=== PATIENT | male | born 1940 | race Caucasian/White ===

== ENCOUNTER → 2016-11-15 | Outpatient (CLI) | payer MEDICARE ==
[2016-11-15 08:41] LABS: Blood Urea Nitrogen 20 mg/dL (9-20); Non-African American GFR(MDRD) >60 (>60 ml/min/1.73 sqM)
--- NOTE | 2016-11-15 09:25 | CT ---
EXAMINATION TYPE: CT abdomen pelvis wo/w con DATE OF EXAM: 11/15/2016 REFERENCE: Previous study dated 03/04/2016 HISTORY: R10.9 unspecified abdominal pain HISTORY: Patient complains of epigastric pain, weight loss, fever, and weakness. REFERENCE: NONE CT DLP: 2507 mGy Automated exposure control for dose reduction was used. TECHNIQUE: Helical acquisition through the abdomen and pelvis was obtained following the oral ingesti on of with Oral Contrast and following intravenous administration of 100 mL of Omnipaque 300. The liberty a was reformatted in axial, coronal and sagittal projections. FINDINGS: Visualized portions of the lungs are clear. There is no pleural or pericardial fluid. The heart is not enlarged. There is coronary and other vascular calcifications. Within the abdomen, there is evidence of old granulomatous disease involving the spleen. The gallblad otis is been removed. The liver is unremarkable. There is mild thickening of the first part of the duodenum. The stomach is unremarkable. Both adrenal glands are normal. There is marked atrophy of the right kidney. The left kidney is unremarkable. The pancreas is unremarkable. There is no significant retroperitoneal, iliac or inguinal adenopathy. The prostate gland is enlarged. The bladder wall is somewhat thickened and this may the on the basis of chronic bladder outlet obstruction. There is mild thickening of the wall of the sigmoid colon. Its may be on the basis of smooth muscle h ypertrophy. There is no significant diverticular change and there is no radiographic evidence of dive rticulitis. The appendix is normal. Small bowel loops are normal. There is no free fluid and no free air. No bony destructive lesion is seen. There is facet arthropathy and hypertrophic spondylosis throughou t the spine. IMPRESSION: 1. MILD THICKENING OF THE DUODENUM. DIRECT VISUALIZATION COULD BE PERFORMED TO EXCLUDE DUODENITIS. 2. 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 3. MARKED ATROPHY OF THE RIGHT KIDNEY. 4. PROSTATIC ENLARGEMENT. 5. MILD THICKENING OF THE WALL OF SIGMOID COLON MAY BE ON THE BASIS OF MUSCLE HYPERTROPHY. 5. MODERATELY SEVERE DEGENERATIVE CHANGES WITHIN THE SPINE.
== END | disposition home or self-care (01) ==
LOC: RADCTMAIN 07:57
PROVIDERS: ATTEND Internal Medicine Gastroenterology
DX: N26.1 Atrophy of kidney (terminal) (principal); N40.0 Benign prostatic hyperplasia without lower urinary tract symptoms; K31.89 Other diseases of stomach and duodenum; K63.89 Other specified diseases of intestine
CPT/HCPCS: 82565; 84520; 74178; 36415; Q9967

== ENCOUNTER 2016-11-18 11:43 | Day surgery (SDC) | payer MEDICARE ==
[2016-11-16 14:34] VITALS: BMI 28.3
[~2016-11-18 11:43] MED LIST: LACTATED RINGERS 1,000 ML IV SCH
[2016-11-18 11:59] VITALS: TEMP 98.6
[2016-11-18] MEDS ORDERED: LIDOCAINE 1% 20 ML VIAL (10MG/ML) FOR IV START INTRADERMA ONE (12:07)
[2016-11-18] MEDS ORDERED: PROPOFOL 10 MG/ML 20 ML VIAL IV ONE (12:43)
--- NOTE | 2016-11-18 13:12 | P.PCN ---
Date of Procedure: 11/18/16 Preoperative Diagnosis: Postoperative Diagnosis: Procedure(s) Performed: PREOPERATIVE DIAGNOSIS: Screening for history of polyps. POSTOPERATIVE DIAGNOSIS: Sigmoid diverticulosis with no evidence of acute diverticulitis, strictures, polyps or cancer. Preparation: HalfLytely prep. Sedation: Was provided by anesthesia. BRIEF CLINICAL HISTORY: The patient is a 76-year-old male who is scheduled for this evaluation because of history of polyps. He has no bowel complaints of bleeding or anemia. He has been evaluated for epigastric pains and weight loss and has had couple EGDs last fall and winter in [place] and in [place]. His last colonoscopy was around 5 years ago. PROCEDURE: With the patient on her left lateral decubitus position and after informed consent and adequate sedation, the perianal area was inspected and did not show any fissures or fistulas. There were no masses felt on digital rectal examination. The Olympus CFQ 160L video colonoscope was then inserted in the rectum in the usual fashion and advanced to the cecum. There were several few orifices seen scattered in the sigmoid but there was no evidence of acute diverticulitis or strictures. No polyps or tumors were seen. I retroflexed the endoscope in the rectum then the endoscope was withdrawn. Low-grade internal hemorrhoids were noted but there was no bleeding The patient tolerated the procedure well. PLAN: The patient was reassured. Discussed dietary measures. I suggested repeating this exam in 5 years. He will follow-up with you as planned. Implants: Implants: Indications for Procedure: Operative Findings: Description of Procedure:
[2016-11-18 13:39] VITALS: BP 131/72; PULSE 49; RESP 16
== END 2016-11-18 14:07 | disposition home or self-care (01) ==
LOC: ORWHC2ENDO 11:43
DX: Z12.11 Encounter for screening for malignant neoplasm of colon (principal); Z86.010 Personal history of colon polyps; K57.30 Diverticulosis of large intestine without perforation or abscess without bleeding; I10 Essential (primary) hypertension; H40.9 Unspecified glaucoma; K64.8 Other hemorrhoids; R63.4 Abnormal weight loss; K21.9 Gastro-esophageal reflux disease without esophagitis; Z79.899 Other long term (current) drug therapy; Z87.891 Personal history of nicotine dependence
CPT/HCPCS: J2704; G0105; 45378

== ENCOUNTER 2016-11-20 11:55 | Emergency (ER) | payer MEDICARE ==
[2016-11-20] MEDS ORDERED: MAG HYDROX/AL HYDROX/SIMETH 30 ML, HYOSCYAMINE ELIXIR 10 ML, CIMETIDINE HCL 300 MG, LID... PO STA ×4 (12:24)
--- NOTE | 2016-11-20 12:28 | ED ---
Abdominal Pain HPI - General Chief Complaint: Abdominal Pain Stated Complaint: abdominal pain Time Seen by Provider: 11/20/16 12:19 Source: patient, family Mode of arrival: wheelchair Limitations: no limitations - History of Present Illness Initial Comments: This patient is a 76-year-old man who presents with complaint of abdominal pain. He states that this pain is been going on for approximately one year, however it is worse for the past 1-2 days after he had a colonoscopy performed ( Dr. Grvoe). The patient states that he had been "taking medicine to coat my stomach and I think with the bowel preparation it washed the coating off of my stomach." The patient states that the pain is constant, severe, and he states it feels like a toothache. He has not noted any worsening factors. The patient states that he usually tries to induce emesis to help but it didn't help this time. Denies change in bowel movements or urination. No nausea or vomiting, other than self-induced. MD Complaint: abdominal pain Onset/Timin -: year(s) Location: epigastric Radiation: none Migration to: no migration Severity: severe Quality: other (Like a toothache) Consistency: constant Improves With: nothing Worsens With: nothing Context: recent surgery/procedure Associated Symptoms: denies other symptoms - Related Data Home Medications Medication Instructions Recorded Confirmed Atenolol/Chlorthalidone 1 tab PO DAILY 12/12/13 11/20/16 [Atenolol-Chlorthal 50-25 Tb] Escitalopram [Lexapro] 10 mg PO DAILY 12/12/13 11/20/16 Dorzolamide-Timolol 2%/0.5% 1 drop BOTH EYES DAILY 11/16/16 11/20/16 [dorzolamide-Timolol 2%/0.5%] Latanoprost Ophth [Xalatan 0.005%] 1 drops BOTH EYES HS 11/16/16 11/20/16 [place]-3 Fatty Acids [[place]-3] 1,000 mg PO DAILY 11/16/16 11/20/16 Omeprazole 20 mg PO BID 11/16/16 11/20/16 Potassium Chloride ER [K-Dur 10] 10 meq PO BID 11/16/16 11/20/16 Calcium Carbonate/Vitamin D3 1 tab PO QID 11/20/16 11/20/16 [Caltrate 600 Plus D3 Tablet] Simethicone [Gas-X] 125 mg PO Q6H PRN 11/20/16 11/20/16 Turmeric Root Extract [Turmeric] 500 mg PO DAILY 11/20/16 11/20/16 Previous Rx's Medication Instructions Recorded Hydrocodone/Acetaminophen [Craig 1 each PO Q6HR PRN #20 tab 11/20/16 5-325] Allergies Allergy/AdvReac Type Severity Reaction Status Date / Time No Known Allergies Allergy Verified 11/20/16 13:24 Review of Systems ROS Statement: Those systems with pertinent positive or pertinent negative responses have been documented in the HPI. ROS Other: All systems not noted in ROS Statement are negative. Constitutional: Denies: fever, chills Respiratory: Denies: cough, dyspnea Cardiovascular: Denies: chest pain, edema, syncope Gastrointestinal: Reports: as per HPI, abdominal pain. Denies: nausea, vomiting , diarrhea, constipation, hematemesis, melena, hematochezia Genitourinary: Denies: dysuria, frequency, hematuria, testicular pain Musculoskeletal: Denies: back pain Skin: Denies: rash Neurological: Denies: headache, weakness, numbness Past Medical History Past Medical History: GERD/Reflux, Hypertension Additional Past Medical History / Comment(s): Atrophic (R) kidney History of Any Multi-Drug Resistant Organisms: None Reported Past Surgical History: Cholecystectomy Additional Past Surgical History / Comment(s): Neck surgery Past Psychological History: Anxiety Smoking Status: Never smoker Past Alcohol Use History: None Reported Past Drug Use History: None Reported General Exam Limitations: no limitations General appearance: alert, in no apparent distress Head exam: Present: atraumatic, normocephalic Eye exam: Present: normal appearance. Absent: scleral icterus, conjunctival injection ENT exam: Present: normal oropharynx Respiratory exam: Present: normal lung sounds bilaterally. Absent: respiratory distress, wheezes, rales, rhonchi, stridor, chest wall tenderness Cardiovascular Exam: Present: regular rate, normal rhythm, normal heart sounds. Absent: systolic murmur, diastolic murmur, rubs, gallop GI/Abdominal exam: Present: soft, normal bowel sounds. Absent: distended, tenderness, guarding, rebound, mass, pulsatile mass, hernia Extremities exam: Present: normal inspection, normal capillary refill. Absent: pedal edema, calf tenderness Back exam: Present: normal inspection. Absent: CVA tenderness (R), CVA tenderness (L) Neurological exam: Present: alert Skin exam: Present: warm, dry, intact, normal color. Absent: rash Course Vital Signs 11/20/16 11/20/16 11/20/16 12:05 13:02 13:18 Temperature 97.0 F L 98.7 F Pulse Rate 72 65 Respiratory 16 16 16 Rate Blood Pressure 129/89 152/75 O2 Sat by Pulse 100 98 Oximetry Medical Decision Making - Lab Data Result diagrams: 11/20/16 12:33 11/20/16 12:33 Lab Results 11/20/16 11/20/16 11/20/16 Range/Units 12:33 12:33 12:33 WBC 14.2 H (3.8-10.6) k/uL RBC 4.60 (4.30-5.90) m/uL Hgb 14.4 (13.0-17.5) gm/dL Hct 43.8 (39.0-53.0) % MCV 95.4 (80.0-100.0) fL MCH 31.4 (25.0-35.0) pg MCHC 33.0 (31.0-37.0) g/dL RDW 13.2 (11.5-15.5) % Plt Count 202 (150-450) k/uL Neutrophils % 87 % Lymphocytes % 5 % Monocytes % 5 % Eosinophils % 0 % Basophils % 0 % Neutrophils # 12.3 H (1.3-7.7) k/uL Lymphocytes # 0.8 L (1.0-4.8) k/uL Monocytes # 0.8 (0-1.0) k/uL Eosinophils # 0.1 (0-0.7) k/uL Basophils # 0.0 (0-0.2) k/uL Sodium 137 (137-145) mmol/L Potassium 3.1 L (3.5-5.1) mmol/L Chloride 95 L (98-107) mmol/L Carbon Dioxide 31 H (22-30) mmol/L Anion Gap 11 mmol/L BUN 11 (9-20) mg/dL Creatinine 1.01 (0.66-1.25) mg/dL Est GFR (MDRD) Af Amer >60 (>60 ml/min/1.73 sqM) Est GFR (MDRD) Non-Af >60 (>60 ml/min/1.73 sqM) Glucose 142 H (74-99) mg/dL Calcium 9.3 (8.4-10.2) mg/dL Total Bilirubin 3.2 H (0.2-1.3) mg/dL AST 51 (17-59) U/L ALT 112 H (21-72) U/L Alkaline Phosphatase 226 H (38-126) U/L Troponin I <0.012 (0.000-0.034) ng/mL Total Protein 7.0 (6.3-8.2) g/dL Albumin 3.7 (3.5-5.0) g/dL Amylase 56 (30-110) U/L Lipase 98 (23-300) U/L Urine Color Urine Appearance (Clear) Urine pH (5.0-8.0) Ur Specific [place] (1.001-1.035) Urine Protein (Negative) Urine Glucose (UA) (Negative) Urine Ketones (Negative) Urine Blood (Negative) Urine Nitrite (Negative) Urine Bilirubin (Negative) Urine Urobilinogen (<2.0) mg/dL Ur Leukocyte Esterase (Negative) Urine RBC (0-5) /hpf Urine WBC (0-5) /hpf Urine Bacteria (None) /hpf Hyaline Casts (0-2) /lpf Urine Mucus (None) /hpf 11/20/16 Range/Units 12:33 WBC (3.8-10.6) k/uL RBC (4.30-5.90) m/uL Hgb (13.0-17.5) gm/dL Hct (39.0-53.0) % MCV (80.0-100.0) fL MCH (25.0-35.0) pg MCHC (31.0-37.0) g/dL RDW (11.5-15.5) % Plt Count (150-450) k/uL Neutrophils % % Lymphocytes % % Monocytes % % Eosinophils % % Basophils % % Neutrophils # (1.3-7.7) k/uL Lymphocytes # (1.0-4.8) k/uL Monocytes # (0-1.0) k/uL Eosinophils # (0-0.7) k/uL Basophils # (0-0.2) k/uL Sodium (137-145) mmol/L Potassium (3.5-5.1) mmol/L Chloride (98-107) mmol/L Carbon Dioxide (22-30) mmol/L Anion Gap mmol/L BUN (9-20) mg/dL Creatinine (0.66-1.25) mg/dL Est GFR (MDRD) Af Amer (>60 ml/min/1.73 sqM) Est GFR (MDRD) Non-Af (>60 ml/min/1.73 sqM) Glucose (74-99) mg/dL Calcium (8.4-10.2) mg/dL Total Bilirubin (0.2-1.3) mg/dL AST (17-59) U/L ALT (21-72) U/L Alkaline Phosphatase (38-126) U/L Troponin I (0.000-0.034) ng/mL Total Protein (6.3-8.2) g/dL Albumin (3.5-5.0) g/dL Amylase (30-110) U/L Lipase (23-300) U/L Urine Color Yellow Urine Appearance Cloudy (Clear) Urine pH 6.0 (5.0-8.0) Ur Specific [place] 1.013 (1.001-1.035) Urine Protein 1+ H (Negative) Urine Glucose (UA) Negative (Negative) Urine Ketones Negative (Negative) Urine Blood Negative (Negative) Urine Nitrite Negative (Negative) Urine Bilirubin 1+ H (Negative) Urine Urobilinogen 2.0 (<2.0) mg/dL Ur Leukocyte Esterase Negative (Negative) Urine RBC 2 (0-5) /hpf Urine WBC 2 (0-5) /hpf Urine Bacteria Rare H (None) /hpf Hyaline Casts 3 H (0-2) /lpf Urine Mucus Rare H (None) /hpf - EKG Data -: EKG Interpreted by Sc EKG shows normal: sinus rhythm (There is a premature supraventricular complex), axis (Left axis deviation), intervals (AR interval is prolonged at 212 ms, consistent with first-degree AV block. QTc is prolonged at 489 ms.), QRS complexes (Normal), ST-T waves (Normal) Rate: normal (Proximally 73 bpm) Disposition Clinical Impression: Abdominal pain, Hypokalemia Disposition: HOME SELF-CARE Condition: Fair Instructions: Abdominal Pain (ED) Prescriptions: Hydrocodone/Acetaminophen [Craig 5-325] 1 each PO Q6HR PRN #20 tab PRN Reason: Pain Referrals: Aldo Cronin MD [Primary Care Provider] - 1-2 days
[2016-11-20 12:50] LABS: Basophils % (A) 0 %; CH 32.2; CHCM 33.9; Eosinophils # (A) 0.1 k/uL (0-0.7); Eosinophils % (A) 0 %; HCT 43.8 % (39.0-53.0); HDW 2.65; HGB 14.4 gm/dL (13.0-17.5); Luc # (Auto) 0.24; Luc % (Auto) 2; Lymphocytes # (A) 0.8 k/uL (1.0-4.8); Lymphocytes % (A) 5 %; MCH 31.4 pg (25.0-35.0); MCV 95.4 fL (80.0-100.0); Mean Platelet Volume 7.8; Monocytes # (A) 0.8 k/uL (0-1.0); Monocytes % (A) 5 %; Neutrophils # (A) 12.3 k/uL (1.3-7.7); Neutrophils % (A) 87 %; RDW 13.2 % (11.5-15.5); WBC 14.2 k/uL (3.8-10.6); WBC (Perox) 13.72
[2016-11-20 12:51] LABS: Appearance,Urine Cloudy (Clear); Bacteria,Urine Rare /hpf; Bilirubin,Urine 1+ (Negative); Glucose,Urine (UA) Negative (Negative); Ketones,Urine Negative (Negative); Leukocyte Esterase,Urine Negative (Negative); Mucus,Urine Rare /hpf; Nitrite,Urine Negative (Negative); Particle Count 3367; Protein,Urine 1+ (Negative); RBC,Urine 2 /hpf (0-5); Specific Gravity,Urine 1.013 (1.001-1.035); UA Billing (MACRO vs. MICRO) MICRO; WBC,Urine 2 /hpf (0-5)
[2016-11-20 13:05] LABS: ALT 112 U/L (21-72); AST 51 U/L (17-59); Alkaline Phosphatase 226 U/L (38-126); Amylase 56 U/L (30-110); Anion Gap 11 mmol/L; Blood Urea Nitrogen 11 mg/dL (9-20); Calcium 9.3 mg/dL (8.4-10.2); Carbon Dioxide 31 mmol/L (22-30); Chloride 95 mmol/L (98-107); Glucose 142 mg/dL (74-99); Non-African American GFR(MDRD) >60 (>60 ml/min/1.73 sqM); Sodium 137 mmol/L (137-145); Total Bilirubin 3.2 mg/dL (0.2-1.3)
[2016-11-20] MEDS ORDERED: MORPHINE SULFATE 4 MG/ML SYRINGE IV STA (13:09)
[2016-11-20 13:10] LABS: Potassium 3.1 mmol/L (3.5-5.1)
--- NOTE | 2016-11-20 13:11 | CT ---
EXAMINATION TYPE: CT abdomen pelvis wo con DATE OF EXAM: 11/20/2016 HISTORY: Increasing epigastric pain over last [address] DLP: 711.1 mGycm. Automated Exposure Control for Dose Reduction was Utilized. TECHNIQUE: CT scan of the abdomen and pelvis is performed without oral or IV contrast. COMPARISON: CT abdomen and pelvis from 5 days ago FINDINGS: Within the limitations of a non-contrast study, the following observations are made. LUNG BASES: Coronary artery calcification or stent in the RCA distribution is redemonstrated. LIVER/GB: Cholecystectomy clips are redemonstrated.. PANCREAS: No significant abnormality is seen. SPLEEN: Numerous calcifications throughout the spleen are again seen likely product of old granulomat ous disease. ADRENALS: No significant abnormality is seen. KIDNEYS: End-stage atrophy of right kidney is redemonstrated. Bladder is poorly distended and subopti francesco evaluated. There is more prominent concentric wall thickening of the bladder up to 14 mm. A cys titis needs to BE excluded clinically. BOWEL: No suspicious small or large bowel dilatation is present. There is 1.7 cm diverticulum along m edial aspect of the second portion of duodenum on coronal image 42 redemonstrated. GENITAL ORGANS: Scattered pelvic phleboliths are again seen. Prostate gland is not suspiciously enlar ged to me. Seminal vesicles are stable and prominent. LYMPH NODES: No greater than 1cm abdominal or pelvic lymph nodes are appreciated. OSSEOUS STRUCTURES: There is multilevel spurring in the spine. There is facet arthropathy lower lumba r levels. OTHER: There are small fat-containing inguinal hernia is redemonstrated bilaterally. There is moderate calcified atherosclerotic change of the aorta extending into branch vessels. IMPRESSION: Redemonstration of abnormal bladder wall thickening, a cystitis should be excluded clinic ally. Outlet obstruction obstruction related to BPH is in differential. No bowel obstruction is seen. No significant new or acute finding is present to account for patient's symptoms.
[2016-11-20] MEDS ORDERED: POTASSIUM BICARB-CITRIC ACID 25 MEQ TABLET.EFF PO STA (13:47)
[2016-11-20 14:25] VITALS: BP 140/77; PULSE 70; RESP 18; TEMP 97.6
== END 2016-11-20 14:24 | disposition home or self-care (01) ==
LOC: EC 11:55
DX: E87.6 Hypokalemia (principal); R10.13 Epigastric pain; I44.0 Atrioventricular block, first degree; I49.1 Atrial premature depolarization; I10 Essential (primary) hypertension; K21.9 Gastro-esophageal reflux disease without esophagitis; F41.9 Anxiety disorder, unspecified; Z79.899 Other long term (current) drug therapy; Z90.49 Acquired absence of other specified parts of digestive tract
CPT/HCPCS: 36415; 93005; 80053; 82150; 83690; 84484; 85025; 81001; 74176; 99284; 96374; J2270

== ENCOUNTER → 2016-12-10 | Outpatient (CLI) | payer MEDICARE ==
[2016-12-10 07:16] LABS: Basophils # (A) 0.1 k/uL (0-0.2); Basophils % (A) 1 %; CH 32.1; CHCM 33.6; Eosinophils # (A) 0.2 k/uL (0-0.7); Eosinophils % (A) 3 %; HCT 42.3 % (39.0-53.0); HDW 2.65; Luc # (Auto) 0.17; Luc % (Auto) 3; Lymphocytes # (A) 0.9 k/uL (1.0-4.8); Lymphocytes % (A) 14 %; MCH 31.7 pg (25.0-35.0); MCHC 33.1 g/dL (31.0-37.0); MCV 95.7 fL (80.0-100.0); Monocytes # (A) 0.4 k/uL (0-1.0); Monocytes % (A) 6 %; Neutrophils # (A) 4.5 k/uL (1.3-7.7); Neutrophils % (A) 73 %; RBC 4.42 m/uL (4.30-5.90); WBC 6.1 k/uL (3.8-10.6); WBC (Perox) 5.34
[2016-12-10 07:38] LABS: INR 1.1 (<1.1); Prothrombin Time 10.7 sec (9.0-12.0)
[2016-12-10 09:44] LABS: ALT 112 U/L (21-72); AST 36 U/L (17-59); Alkaline Phosphatase 500 U/L (38-126); Bilirubin, Delta 0.6 mg/dL (0.0-0.2); Total Protein 7.3 g/dL (6.3-8.2)
--- NOTE | 2016-12-10 09:49 | NM ---
EXAMINATION TYPE: NM gastric emptying study DATE OF EXAM: 12/10/2016 COMPARISON: CT abdomen pelvis 11/20/2016 HISTORY: Abdominal pain, vomiting, R 11.10 Following administration of 2.2 mCi Tc 99m Sulfur Colloid with 1 cup of oatmeal projection images of the abdomen were obtained 10 minutes post ingestion. When possible, both anterior and posterior proje ction images were obtained to allow the calculation of the geometric mean activity. Clearance: 88 % Half-life: 51 min Gastroesophagel reflux: None IMPRESSION: Gastric emptying: Normal Gastroesophageal reflux: None Gastric emptying normal percentage values: 30 minutes: <70% of retention (> 30% emptying) suggests abnormally fast emptying. 60 minutes: <90% retention (>10% emptying) is normal; less than 30% retention (>70% emptying) suggest s abnormally rapid emptying. 90 minutes: <65% retention (> 35% emptying) is normal. 120 minutes: <60% retention (> 40% emptying) is normal. 180 minutes: <30% retention (> 70% emptying) is normal. Gastric emptying T-1/2: Solid: The normal range is 60-105 minutes Liquid only: Normal range is 10-45 minutes. Liquid only-children: At 60 minutes, normal range is 44-58 % . Liquid only-infants: At 60 minutes, normal range is 32-64 %. Additional references: Gastric Emptying Scintigraphy [email or web address]://[email or web address]
[2016-12-10 10:15] LABS: Hepatitis B Surface Ag Index 0.05
[2016-12-10 10:21] LABS: Hepatitis B Core IgM Index 0.02
[2016-12-10 10:33] LABS: Hepatitis C Virus IgG Ab Negative (Negative); Hepatitis C Virus IgG Index 0.03
[2016-12-10 11:16] LABS: Iron 84 ug/dL (49-181)
[2016-12-10 11:28] LABS: % Iron Saturation 30.8 % (20-50); Total Iron Binding Capacity 273 ug/dL (261-462)
[2016-12-10 13:40] LABS: ANA w/Reflex to Titer NEGATIVE (NEGATIVE)
== END | disposition home or self-care (01) ==
LOC: RADNMMAIN 06:40
PROVIDERS: ATTEND Physician Assistant
DX: R11.10 Vomiting, unspecified (principal); R94.5 Abnormal results of liver function studies
CPT/HCPCS: 80076; 80074; 82728; 83540; 83550; 85025; 85610; 83516 ×2; 82103; 84165; 82390; 86038; 78264; A9541

== ENCOUNTER → 2017-01-18 | Outpatient (CLI) | payer MEDICARE ==
[2017-01-18 09:27] LABS: Bilirubin, Delta 0.3 mg/dL (0.0-0.2); Total Bilirubin 0.9 mg/dL (0.2-1.3)
[2017-01-18 09:54] LABS: Total Protein 7.1 g/dL (6.3-8.2)
== END | disposition home or self-care (01) ==
LOC: LABWHC1 08:36
PROVIDERS: ATTEND Physician Assistant
DX: R94.5 Abnormal results of liver function studies (principal)
CPT/HCPCS: 36415; 80076; 82105

== ENCOUNTER 2017-02-07 15:27 | Inpatient (IN) | payer MEDICARE ==
[2017-02-07] MEDS ORDERED: ONDANSETRON 4 MG/2 ML VIAL IVP STA (15:51)
[2017-02-07] MEDS ORDERED: SODIUM CHLORIDE 0.9% 1,000 ML IV STA ×2 (15:51→17:19)
--- NOTE | 2017-02-07 16:09 | ED ---
General Adult HPI - General Source: patient, RN notes reviewed Mode of arrival: ambulatory Limitations: no limitations <Rubio Chen - Last Filed: 02/07/17 17:08> <Michel Fernandez - Last Filed: 02/07/17 17:20> - General Chief complaint: Recheck/Abnormal Lab/Rx Stated complaint: Abd Pain, Fever, Sent by Time Seen by Provider: 02/07/17 15:44 - History of Present Illness Initial comments: Patient 76-year-old male who presents emergency room today with a chief complaint of abdominal pain on and off for last year. He does admit that he was at his family doctor's office had blood work obtained was called and advised come here to the emergency room because he was told that there is elevated pancreatic enzymes. Patient admits that this pain is similar pain that he's been experiencing on and off for last year. Does admit that his symptoms be worse when he eats. He admits to history of cholecystectomy approximately 10 years ago. Patient denies any other complaints associated symptoms at this time. Patient denies any recent fever, chills, shortness of breath, chest pain, back pain, numbness or tingling, dysuria or hematuria, constipation or diarrhea, headaches or visual changes, or any other complaints. (Rubio Chen) - Related Data Home Medications Medication Instructions Recorded Confirmed Escitalopram [Lexapro] 10 mg PO DAILY 12/12/13 02/07/17 Dorzolamide-Timolol 2%/0.5% 1 drop BOTH EYES DAILY 11/16/16 02/07/17 [dorzolamide-Timolol 2%/0.5%] Latanoprost Ophth [Xalatan 0.005%] 1 drops BOTH EYES HS 11/16/16 02/07/17 Omeprazole 20 mg PO BID 11/16/16 02/07/17 Simethicone [Gas-X] 125 mg PO Q6H PRN 11/20/16 02/07/17 Acetaminophen [Tylenol] 650 mg PO BID PRN 02/07/17 02/07/17 Mylanta 1 tab PO DAILY PRN 02/07/17 02/07/17 Allergies Allergy/AdvReac Type Severity Reaction Status Date / Time No Known Allergies Allergy Verified 02/07/17 16:51 Review of Systems ROS Other: All systems not noted in ROS Statement are negative. <Rubio Chen - Last Filed: 02/07/17 17:08> ROS Other: All systems not noted in ROS Statement are negative. <Michel Fernandez - Last Filed: 02/07/17 17:20> ROS Statement: Those systems with pertinent positive or pertinent negative responses have been documented in the HPI. Past Medical History Past Medical History: GERD/Reflux, Hypertension Additional Past Medical History / Comment(s): Atrophic (R) kidney History of Any Multi-Drug Resistant Organisms: None Reported Past Surgical History: Cholecystectomy Additional Past Surgical History / Comment(s): Neck surgery Past Psychological History: Anxiety Smoking Status: Never smoker Past Alcohol Use History: None Reported Past Drug Use History: None Reported <Rubio Chen - Last Filed: 02/07/17 17:08> General Exam Limitations: no limitations <Rubio Chen - Last Filed: 02/07/17 17:08> <Michel Fernandez - Last Filed: 02/07/17 17:20> - General Exam Comments Initial Comments: General: The patient is awake and alert, in no distress, and does not appear acutely ill. Eye: Pupils are equal, round and reactive to light, extra-ocular movements are intact. No nystagmus. There is normal conjunctiva bilaterally. No signs of icterus. Ears, nose, mouth and throat: There are moist mucous membranes and no oral lesions. Neck: The neck is supple, there is no tenderness or JVD. Cardiovascular: There is a regular rate and rhythm. No murmur, rub or gallop is appreciated. Respiratory: Lungs are clear to auscultation, respirations are non-labored, breath sounds are equal. No wheezes, stridor, rales, or rhonchi. Gastrointestinal: Soft, non-distended. Mild tenderness epigastric. There is no rebound or guarding present. No CVA tenderness. Bowel sounds are unremarkable. Musculoskeletal: Normal ROM, no tenderness. Strength 5/5. Sensation intact. Pulses equal bilaterally 2+. Neurological: A&O x 3. CN II-XII intact, There are no obvious motor or sensory deficits. Coordination appears grossly intact. Speech is normal. Skin: Skin is warm and dry and no rashes or lesions are noted. Psychiatric: Cooperative, appropriate mood & affect, normal judgment. (Rubio Chen) Medical Decision Making - Lab Data Result diagrams: 02/07/17 16:03 02/07/17 16:03 <Rubio Chen - Last Filed: 02/07/17 17:08> - Lab Data Result diagrams: 02/07/17 16:03 02/07/17 16:03 <Michel Fernandez - Last Filed: 02/07/17 17:20> - Medical Decision Making Patient's labs been reviewed does show 16,000 white count. Does show elevated AST ALT with elevated amylase lipase. Case was discussed and seen by attending physician . Patient will be admitted for pancreatitis. Patient family wear the plan. (Rubio Chen) The patient was seen and examined. All diagnostics were reviewed. The case is discussed with the PA and I agree with findings as documented. Case is discussed with internal medicine and they are agreeable with admission. (Michel Fernandez) - Lab Data Lab Results 02/07/17 02/07/17 02/07/17 Range/Units 16:03 16:03 16:03 WBC 16.1 H (3.8-10.6) k/uL RBC 4.60 (4.30-5.90) m/uL Hgb 14.7 (13.0-17.5) gm/dL Hct 45.9 (39.0-53.0) % MCV 99.7 (80.0-100.0) fL MCH 31.9 (25.0-35.0) pg MCHC 32.0 (31.0-37.0) g/dL RDW 13.5 (11.5-15.5) % Plt Count 333 (150-450) k/uL Neutrophils % 90 % Lymphocytes % 4 % Monocytes % 4 % Eosinophils % 1 % Basophils % 0 % Neutrophils # 14.5 H (1.3-7.7) k/uL Lymphocytes # 0.6 L (1.0-4.8) k/uL Monocytes # 0.6 (0-1.0) k/uL Eosinophils # 0.1 (0-0.7) k/uL Basophils # 0.1 (0-0.2) k/uL Sodium 134 L (137-145) mmol/L Potassium 4.7 (3.5-5.1) mmol/L Chloride 97 L (98-107) mmol/L Carbon Dioxide 26 (22-30) mmol/L Anion Gap 11 mmol/L BUN 18 (9-20) mg/dL Creatinine 1.00 (0.66-1.25) mg/dL Est GFR (MDRD) Af Amer >60 (>60 ml/min/1.73 sqM) Est GFR (MDRD) Non-Af >60 (>60 ml/min/1.73 sqM) Glucose 100 H (74-99) mg/dL Calcium 9.6 (8.4-10.2) mg/dL Total Bilirubin 2.1 H (0.2-1.3) mg/dL AST 100 H (17-59) U/L ALT 187 H (21-72) U/L Alkaline Phosphatase 738 H (38-126) U/L Total Protein 7.0 (6.3-8.2) g/dL Albumin 3.7 (3.5-5.0) g/dL Amylase 354 H* (30-110) U/L Lipase 1982 H (23-300) U/L Urine Color Yellow Urine Appearance Clear (Clear) Urine pH 6.0 (5.0-8.0) Ur Specific [place] 1.014 (1.001-1.035) Urine Protein Trace H (Negative) Urine Glucose (UA) Negative (Negative) Urine Ketones Negative (Negative) Urine Blood Negative (Negative) Urine Nitrite Negative (Negative) Urine Bilirubin 1+ H (Negative) Urine Urobilinogen <2.0 (<2.0) mg/dL Ur Leukocyte Esterase Negative (Negative) Disposition Time of Disposition: 17:09 <Rubio Chen - Last Filed: 02/07/17 17:08> <Michel Fernandez - Last Filed: 02/07/17 17:20> Clinical Impression: Pancreatitis Referrals: Aldo Cronin MD [Primary Care Provider] - 1-2 days
[2017-02-07 16:14] LABS: Basophils # (A) 0.1 k/uL (0-0.2); Basophils % (A) 0 %; CH 32.9; CHCM 33.1; Eosinophils # (A) 0.1 k/uL (0-0.7); Eosinophils % (A) 1 %; HCT 45.9 % (39.0-53.0); HDW 2.03; HGB 14.7 gm/dL (13.0-17.5); Luc # (Auto) 0.21; Luc % (Auto) 1; Lymphocytes # (A) 0.6 k/uL (1.0-4.8); Lymphocytes % (A) 4 %; MCH 31.9 pg (25.0-35.0); MCV 99.7 fL (80.0-100.0); Mean Platelet Volume 8.5; Monocytes # (A) 0.6 k/uL (0-1.0); Monocytes % (A) 4 %; Neutrophils # (A) 14.5 k/uL (1.3-7.7); Neutrophils % (A) 90 %; RDW 13.5 % (11.5-15.5); WBC 16.1 k/uL (3.8-10.6); WBC (Perox) 14.88
[2017-02-07 16:22] LABS: Appearance,Urine Clear (Clear); Bilirubin,Urine 1+ (Negative); Glucose,Urine (UA) Negative (Negative); Ketones,Urine Negative (Negative); Leukocyte Esterase,Urine Negative (Negative); Nitrite,Urine Negative (Negative); Protein,Urine Trace (Negative); Specific Gravity,Urine 1.014 (1.001-1.035); UA Billing (MACRO vs. MICRO) CHEM; Urobilinogen,Urine <2.0 mg/dL (<2.0)
[2017-02-07 16:31] LABS: ALT 187 U/L (21-72); AST 100 U/L (17-59); Alkaline Phosphatase 738 U/L (38-126); Anion Gap 11 mmol/L; Blood Urea Nitrogen 18 mg/dL (9-20); Calcium 9.6 mg/dL (8.4-10.2); Carbon Dioxide 26 mmol/L (22-30); Chloride 97 mmol/L (98-107); Glucose 100 mg/dL (74-99); Non-African American GFR(MDRD) >60 (>60 ml/min/1.73 sqM); Potassium 4.7 mmol/L (3.5-5.1); Sodium 134 mmol/L (137-145); Total Bilirubin 2.1 mg/dL (0.2-1.3)
--- NOTE | 2017-02-07 16:32 | XR ---
EXAMINATION TYPE: XR KUB DATE OF EXAM: 02/07/2017 COMPARISON: NONE INDICATION: Upper abdominal pain TECHNIQUE: Single view abdomen upright view FINDINGS: Normal colonic bowel gas is present. Nonspecific small bowel gas is present. Couple of air-fluid leve ls are within the small bowel loops. Differential air-fluid levels on the left upper quadrant. Cholec ystectomy clips are in the right upper quadrant. No free air is evident. Psoas margins are normal. No organomegaly is present. IMPRESSION: 1. Scattered air-fluid levels with some differential air-fluid levels within small bowel loops left u pper quadrant. Partial small bowel obstruction should be considered. Follow-up is recommended. Report was called to emergency room by Dr. Glover by telephone at time of interpretation.
[2017-02-07 16:44] LABS: Amylase 354 U/L (30-110)
[2017-02-07] MEDS ORDERED: ONDANSETRON 4 MG/2 ML VIAL IVP PRN (17:10)
[2017-02-07] MEDS ORDERED: NALOXONE 0.4 MG/ML 1 ML VIAL IV PRN (17:10)
[2017-02-07] MEDS ORDERED: RX INFO: IV CONTRAST WAS GIVEN 1 EACH MISC MISCELLANE PRN (17:19)
[2017-02-07] MEDS: HYDROmorphone 1 MG/ML 1 ML SYRINGE IV PRN (19:26)
--- NOTE | 2017-02-07 20:33 | CT ---
EXAMINATION TYPE: CT abdomen pelvis w con DATE OF EXAM: 02/07/2017 COMPARISON: 11/20/2016 HISTORY: Generalized abdominal pain. CT DLP: 1059.80 mGycm Automated exposure control for dose reduction was used. TECHNIQUE: Helical acquisition of images was performed from the lung bases through the pelvis. CONTRAST: Performed without Oral Contrast and with IV Contrast, patient injected with 100 mL of Omnipaque 300. FINDINGS: Lung bases are clear of consolidation. There is no pleural effusion. Heart size is normal. There are clips from cholecystectomy. The biliary tree is slightly prominent. This is stable compared to 11/20/2016. There is no evidence of a pancreatic mass. There are multiple small calcified splenic granulomata. There is no adrenal mass. There is a dysplastic right kidney.. Left kidney shows no hydronephrosis. T here is compensatory hypertrophy of the left kidney. There is no retroperitoneal adenopathy. There is no ascites. I see no intestinal wall thickening. There are no dilated loops. Abdominal aorta is athe romatous. I see no bony destructive process. There is no compression fracture. There are spondylotic changes in the lumbar spine. There is normal contrast opacification of the left kidney. IMPRESSION: SMALL DYSPLASTIC RIGHT KIDNEY. LEFT KIDNEY APPEARS NORMAL. NO EVIDENCE OF OBSTRUCTION. 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 NO SIGN OF AN ACUTE ABDOMEN AND PELVIS. ATHEROS CLEROTIC VASCULAR DISEASE.
[2017-02-07] MEDS ORDERED: ACETAMINOPHEN TAB 325 MG TAB PO PRN (22:48)
[2017-02-08] MEDS: DORZOLAMIDE-TIMOLOL 2-0.5% DROPS 10 ML BTL BOTH EYES SCH ×2 (00:05→08:35)
[2017-02-08 07:55] LABS: Basophils % (A) 0 %; CH 32.7; CHCM 32.1; Eosinophils # (A) 0.1 k/uL (0-0.7); Eosinophils % (A) 0 %; HDW 1.97; HGB 12.6 gm/dL (13.0-17.5); Luc # (Auto) 0.22; Luc % (Auto) 1; Lymphocytes # (A) 0.5 k/uL (1.0-4.8); Lymphocytes % (A) 3 %; MCH 32.1 pg (25.0-35.0); MCHC 31.5 g/dL (31.0-37.0); MCV 102.1 fL (80.0-100.0); Macrocytosis Slight; Mean Platelet Volume 8.5; Monocytes # (A) 0.7 k/uL (0-1.0); Monocytes % (A) 4 %; Neutrophils # (A) 14.6 k/uL (1.3-7.7); Neutrophils % (A) 91 %; RBC 3.92 m/uL (4.30-5.90); RDW 13.3 % (11.5-15.5); WBC 16.1 k/uL (3.8-10.6); WBC (Perox) 16.66
[2017-02-08 08:26] LABS: ALT 132 U/L (21-72); AST 55 U/L (17-59); Alkaline Phosphatase 489 U/L (38-126); Amylase 115 U/L (30-110); Anion Gap 11 mmol/L; Blood Urea Nitrogen 16 mg/dL (9-20); Calcium 8.6 mg/dL (8.4-10.2); Carbon Dioxide 23 mmol/L (22-30); Chloride 101 mmol/L (98-107); Glucose 71 mg/dL (74-99); Non-African American GFR(MDRD) >60 (>60 ml/min/1.73 sqM); Potassium 4.5 mmol/L (3.5-5.1); Sodium 135 mmol/L (137-145); Total Bilirubin 1.5 mg/dL (0.2-1.3); Total Protein 5.8 g/dL (6.3-8.2)
[2017-02-08] MEDS: ESCITALOPRAM 10 MG TAB PO SCH (08:37)
[2017-02-08] MEDS: PANTOPRAZOLE 40 MG TABLET PO SCH ×2 (08:37→20:03)
[2017-02-08] MEDS: DEXTROSE 5%-0.9% NACL 1,000 ML IV SCH ×2 (08:39→17:38)
[2017-02-08] MEDS: HYDROmorphone 1 MG/ML 1 ML SYRINGE IV PRN (08:44)
[2017-02-08] MEDS ORDERED: ENOXAPARIN 40 MG/0.4 ML SYRINGE SQ SCH (09:00)
--- NOTE | 2017-02-08 10:49 | P.CONS ---
History of Present Illness - Reason for Consult Consult date: 02/08/17 Pancreatitis Requesting physician: Christian Lacey - History of Present Illness 76-year-old gentleman admitted with abdominal pain chronically for the last year exacerbated over the last few days presents to the hospital with elevated pancreatic enzymes in the outpatient setting. Pain exacerbates with eating. He has a history of cholecystectomy about 10 years ago not sure if he had gallstones. No history of alcoholism fever chills hematemesis hematochezia melena. Reports darker colored urine denies acholic stool. He was taking Pepto -Bismol for this discomfort and notices stools to be darker near black in color. CT abdomen and pelvis no evidence of obstruction. Chronic ectasia of the biliary tree unchanged from previous exams. No evidence of pancreatic mass. Previous CT abdomen and pelvis November 2016 reported duodenal diverticulum along the medial aspect second portion. White count 16.1. Hemoglobin 14.7. Platelets 333. Total bilirubin 2.1. AST 100. ALT 187. Alkaline phosphatase 738. Amylase 354. Lipase 1982. Current labs total bilirubin 1.5. AST 55. ALT 132. Alkaline phosphatase 489. Lipase 535. Amylase 115. Review of medical records November 2016 total bilirubin was 3.2. AST 51. ALT 112. Alkaline phosphatase 226. Liver enzymes 3 weeks ago were within normal limits with the exception of alkaline phosphatase 161. Review of Systems Constitutional: Denies fever, chills, sweats, weight gain, or loss. HEENT: Negative for migraines, blurred vision or loss, earaches, drainage, tinnitus, oral mucosal lesions, dysphagia, or odynophagia. Cardiac: Hypertension. Negative for chest pain, arrhythmias, or palpitation. Respiratory: Negative for shortness of breath, hemoptysis, cough, or sputum production. Gastrointestinal: See HPI for pertinent findings. Genitourinary: Negative for hematuria, urgency, frequency, polyuria, dysuria, or penile discharge. Musculoskeletal: Negative for muscle aches, swelling, arthritis, and arthralgias. Neurologic: Negative for stroke or TIA. Endocrine: Negative for thyroid problems. Skin: Negative for rash or itching. Psychiatric: Anxiety. All systems: negative (See HPI) Past Medical History Past Medical History: GERD/Reflux, Hypertension Additional Past Medical History / Comment(s): Atrophic (R) kidney, DIVERTICULOSIS(PER COLONOSCOPY),GLAUCOMA,GASTRITIS, ANXIETY History of Any Multi-Drug Resistant Organisms: None Reported Past Surgical History: Cholecystectomy Additional Past Surgical History / Comment(s): COLONOSCOPY, THUMB JOINT SX, CERVICAL SX W/ HJARDWARE Past Anesthesia/Blood Transfusion Reactions: Postoperative Nausea & Vomiting ( PONV) Smoking Status: Former smoker - Past Family History Father Family Medical History: Cancer Additional Family Medical History / Comment(s): COLON CANCER Mother Family Medical History: Cancer Additional Family Medical History / Comment(s): BREAST CANCER Medications and Allergies Home Medications Medication Instructions Recorded Confirmed Type Escitalopram [Lexapro] 10 mg PO DAILY 12/12/13 02/07/17 History Dorzolamide-Timolol 2%/0.5% 1 drop BOTH EYES DAILY 11/16/16 02/07/17 History [dorzolamide-Timolol 2%/0.5%] Latanoprost Ophth [Xalatan 0.005%] 1 drops BOTH EYES HS 11/16/16 02/07/17 History Omeprazole 20 mg PO BID 11/16/16 02/07/17 History Simethicone [Gas-X] 125 mg PO Q6H PRN 11/20/16 02/07/17 History Acetaminophen [Tylenol] 650 mg PO BID PRN 02/07/17 02/07/17 History Mylanta 1 tab PO DAILY PRN 02/07/17 02/07/17 History Allergies Allergy/AdvReac Type Severity Reaction Status Date / Time No Known Allergies Allergy Verified 02/07/17 16:51 Physical Exam Vitals: Vital Signs Temp Pulse Pulse Resp BP BP Pulse Ox 02/08/17 07:00 97.9 F 83 18 122/74 95 02/07/17 23:00 98.6 F 92 16 141/74 93 L 02/07/17 18:33 98.0 F 84 18 138/79 95 02/07/17 17:25 83 18 125/88 93 L 02/07/17 16:27 58 L 18 146/86 96 02/07/17 15:36 98.9 F 103 H 18 118/64 98 Intake and Output 02/07/17 02/08/17 02/08/17 22:59 06:59 14:59 Intake Total 590 1000 Balance 590 1000 Intake: Intake, IV Titration 1000 Amount Sodium Chloride 0.9% 1, 1000 000 ml @ 125 mls/hr IV . Q8H STA Rx#:[id number] Oral 590 Other: Voiding Method Toilet # Voids 2 2 Weight 88.451 kg General appearance: The patient is alert, oriented, in no acute distress. HET: Head is normocephalic and atraumatic. Pupils are equal and reactive. Oropharynx is clear without lesions. Neck: Supple without lymphadenopathy. Trachea midline. Heart: S1 S2. Regular rate and rhythm. Lungs: No crackles or wheezes are heard. Abdomen: Soft, tenderness midepigastrium left upper quadrant, nondistended with bowel sounds. No peritoneal signs. No palpable organomegaly or masses. Extremities: Normal skin color and turgor. No cyanosis, rash, ulceration, clubbing, or edema. Radial and pedal pulses are 2/4 bilaterally. Neurological: No focal deficits. Strength and sensation are grossly intact. Results CBC & Chem 7: 02/08/17 07:15 02/09/17 07:04 Labs: Abnormal Lab Results - Last 24 Hours (Table) 02/07/17 02/07/17 02/07/17 Range/Units 16:03 16:03 16:03 WBC 16.1 H (3.8-10.6) k/uL RBC (4.30-5.90) m/uL Hgb (13.0-17.5) gm/dL MCV (80.0-100.0) fL Neutrophils # 14.5 H (1.3-7.7) k/uL Lymphocytes # 0.6 L (1.0-4.8) k/uL Sodium 134 L (137-145) mmol/L Chloride 97 L (98-107) mmol/L Glucose 100 H (74-99) mg/dL Total Bilirubin 2.1 H (0.2-1.3) mg/dL AST 100 H (17-59) U/L ALT 187 H (21-72) U/L Alkaline Phosphatase 738 H (38-126) U/L Amylase 354 H* (30-110) U/L Lipase 1982 H (23-300) U/L Urine Protein Trace H (Negative) Urine Bilirubin 1+ H (Negative) 02/08/17 Range/Units 07:15 WBC 16.1 H (3.8-10.6) k/uL RBC 3.92 L (4.30-5.90) m/uL Hgb 12.6 L (13.0-17.5) gm/dL MCV 102.1 H (80.0-100.0) fL Neutrophils # 14.6 H (1.3-7.7) k/uL Lymphocytes # 0.5 L (1.0-4.8) k/uL Sodium (137-145) mmol/L Chloride (98-107) mmol/L Glucose (74-99) mg/dL Total Bilirubin (0.2-1.3) mg/dL AST (17-59) U/L ALT (21-72) U/L Alkaline Phosphatase (38-126) U/L Amylase (30-110) U/L Lipase (23-300) U/L Urine Protein (Negative) Urine Bilirubin (Negative) CT scan - abdomen: report reviewed (Dr. Grove) Assessment and Plan (1) Pancreatitis Narrative/Plan: Etiology unclear could be secondary to duodenal diverticulum possible choledocholithiasis. Underlying malignancy felt to be less likely but cannot be entirely excluded. Status: Acute (2) Elevated liver enzymes Status: Acute (3) Duodenal diverticulum Status: Chronic Plan: 1. Considering liver pancreatic enzymes are improving would favor proceeding with MRI today versus ERCP. ERCP will be contingent on clinical course and MRI findings. CA-19-9 marker. Clear liquid diet as tolerated. Repeat labs in the morning. Will follow closely with you. Thank you for this kind referral and the opportunity to participate in the care of your patient. This consultation was discussed with Dr. Grove. The impression and plan of care have been directed as dictated.
[2017-02-08 11:30] VITALS: BMI 27.1
[2017-02-08 11:49] LABS: Bilirubin, Delta 0.8 mg/dL (0.0-0.2); Total Bilirubin 1.4 mg/dL (0.2-1.3)
--- NOTE | 2017-02-08 17:06 | HP ---
DATE OF ADMISSION: 02/07/17 PRESENTING COMPLAINT: Abdominal pain. HISTORY OF PRESENTING COMPLAINT: This is a very pleasant 77-year-old patient of Dr. Cronin whose chronic stable medical conditions include GERD, hypertension , right kidney atrophy, diverticulosis, depression, hard of hearing. The patient is here with his . The patient has had abdominal pain on and off for one year. Has seen ( ) in the office. Did have an EGD about a year ago and told he has some gastritis. The patients abdominal pain is much worse when he eats. Often gets nausea and belching. Appetite has gone down. The patient lost about 68 pounds. The patient presents with worsening pain in the epigastric area. Found to have acute pancreatitis. It may be noted that the patient previously had cholecystectomy. Normally has a regular bowel movement. REVIEW OF SYSTEMS: Constitutional: Loss of appetite, weight loss. HEENT: Decreased hearing. Respiratory: None. Cardiovascular: None. Gastrointestinal : As above. : None. Musculoskeletal: None. Dermatological: None. Hematological: None. Lymphatics: None. PSYCHIATRY: Depression. Neurological: None. Past medical history of GERD, hypertension, right kidney atrophy, diverticulosis , gastritis, depression, hard of hearing, glaucoma. Past surgical history: Cholecystectomy, thumb joint surgery, cervical spine with hardware. SOCIAL HISTORY: . The patient smoked two packs a day for 26 years, stopped in 1996. Alcohol none. FAMILY HISTORY: Lung cancer. Home medications: 1. Mylanta one tablet po daily prn. 2. Dorzolamide Timolol 2% one drop to both eyes daily. 3. Tylenol 650 mg po b.i.d. prn. 4. Gas-X 125 mg po q6h prn. 5. Omeprazole 20 mg po b.i.d. 6. Xalatan 0.005% one drop to both eyes q.h.s. 7. Lexapro 10 mg po daily. ALLERGIES: None. On examination, vital signs on presentation: Temperature 98.9. Pulse 103. Respiratory rate 18. Blood pressure 118/64. Pulse ox 98% on room air upon admission. GENERAL APPEARANCE: Lying in bed, tired appearing. EYES: pupils equal. Conjunctivae normal. HEENT: Oral cavity normal. NECK: JVD not raised. Mass not palpable. RESPIRATORY: Effort normal. LUNGS: Slight decreased breath sounds. CARDIOVASCULAR: First and second sounds normal. No edema. ABDOMEN: Upper abdomen with some tenderness. No guarding or rigidity. Liver and spleen not palpable. LYMPHATICS: No lymph nodes palpable in the neck and axillae. PSYCHIATRIC: The patient is alert and oriented times three. Mood and affect normal. NEUROLOGICAL: Pupils equal and cranial nerves grossly intact. Power and sensation grossly intact. INVESTIGATIONS: White count 16.1, hemoglobin 14.7. Potassium 4.7. BUN and creatinine normal. AST 100, ALT 187. Alk phos 738. Amylase 354. Lipase 1982. CT scan of the abdomen and pelvis shows evidence of cholecystectomy. Small dysplastic right kidney. ASSESSMENT: 1. Acute pancreatitis with elevated LFTs, somewhat obstructive pattern could be from remnant bile duct stone in a patient who has already had previous cholecystectomy. 2. GERD. 3. Essential hypertension. 4. Right atrophic kidney. 5. Chronic diverticulosis. 6. Chronic gastritis. 7. Depression, not otherwise specified. 8. Hard of hearing. PLAN: Consultation already made to Gastroenterology. The patient may need an ERCP. Home medications are resumed. Getting IV fluids. Care was discussed at length with the patient and at the bedside. Questions were answered. LUIS
[2017-02-08] MEDS: LATANOPROST 0.005% OPHTH DROPS 2.5 ML BTL BOTH EYES SCH (20:02)
--- NOTE | 2017-02-08 23:16 | MR ---
EXAMINATION TYPE: MR MRCP DATE OF EXAM: 02/08/2017 COMPARISON: NONE HISTORY: Standard multiplanar, multisequence MRI departmental protocol Multiplanar, multisequence images of the abdomen were acquired. FINDINGS: Liver shows no focal defect. Cholecystectomy is noted. There is slight prominence of the le ft hepatic duct compared to the right. There is no evidence of a pancreatic mass. Pancreatic duct has normal size. Spleen appears normal. Right kidney is small and dysplastic. There is compensatory hype rtrophy of the left kidney. There is no hydronephrosis. There is no sign of ascites. The common bile duct measures 7 mm. There is abrupt termination of the distal common bile duct proximal to the duodenum. There could be a n intraluminal filling defect. There is not the normal tapering of the distal common bile duct. On the T2 coronal images there appears to be 2 rounded low signal foci in the distal common bile duct . The larger measures 9 mm on image 21 and are consistent with common duct stones. IMPRESSION: There are findings that suggest 2 stones in the distal common bile duct with mild ectasia of the bili cyrus tree. Common bile duct is not significantly dilated. It measures 7 mm. Dysplastic right kidney is noted.
[2017-02-09] MEDS: DEXTROSE 5%-0.9% NACL 1,000 ML IV SCH ×3 (04:50→20:23)
[2017-02-09 07:47] VITALS: RESP 16
[2017-02-09 08:06] LABS: ALT 104 U/L (21-72); AST 43 U/L (17-59); Alkaline Phosphatase 374 U/L (38-126); Amylase 49 U/L (30-110); Anion Gap 9 mmol/L; Blood Urea Nitrogen 12 mg/dL (9-20); Calcium 8.3 mg/dL (8.4-10.2); Carbon Dioxide 26 mmol/L (22-30); Chloride 103 mmol/L (98-107); Glucose 120 mg/dL (74-99); Non-African American GFR(MDRD) >60 (>60 ml/min/1.73 sqM); Potassium 4.1 mmol/L (3.5-5.1); Sodium 138 mmol/L (137-145); Total Protein 5.5 g/dL (6.3-8.2)
[2017-02-09] MEDS: ESCITALOPRAM 10 MG TAB PO SCH (08:25)
[2017-02-09] MEDS: DORZOLAMIDE-TIMOLOL 2-0.5% DROPS 10 ML BTL BOTH EYES SCH (08:26)
[2017-02-09] MEDS: PANTOPRAZOLE 40 MG TABLET PO SCH ×2 (08:26→20:29)
--- NOTE | 2017-02-09 11:21 | P.PN ---
Subjective Principal diagnosis: Pancreatitis elevated liver enzymes 76-year-old male admitted with elevated liver enzymes abdominal pain and pancreatitis. MRI reported 2 common bile duct stones. Pancreatic enzymes have normalized. Liver enzymes improving total bilirubin 1.0. AST 43. ALT 104. Alkaline phosphates 374. CA-19-9 4.5. Objective - Vital Signs Vital signs: Vital Signs Temp 98 F 02/09/17 07:00 Pulse 69 02/09/17 07:00 Resp 16 02/09/17 07:00 BP 142/79 02/09/17 07:00 Pulse Ox 96 02/09/17 07:00 Intake & Output 02/08/17 02/09/17 02/09/17 18:59 06:59 18:59 Intake Total 375 Balance 375 Weight 88.451 kg 88.451 kg Intake: Intake, IV Titration 375 Amount Dextrose 5%-0.9% NaCl 1, 375 000 ml @ 125 mls/hr IV . Q8H ASHLI Rx#:[id number] Oral 0 Other: Voiding Method Toilet # Voids 4 1 # Bowel Movements 1 - Exam General appearance: The patient is alert, oriented, in no acute distress. HET: Head is normocephalic and atraumatic. Pupils are equal and reactive. Oropharynx is clear without lesions. Neck: Supple without lymphadenopathy. Trachea midline. Heart: S1 S2. Regular rate and rhythm. Lungs: No crackles or wheezes are heard. Abdomen: Soft, mild midepigastric tenderness, nondistended with bowel sounds. No peritoneal signs. No palpable organomegaly or masses. Extremities: Normal skin color and turgor. No cyanosis, rash, ulceration, clubbing, or edema. Radial and pedal pulses are 2/4 bilaterally. Neurological: No focal deficits. Strength and sensation are grossly intact. - Labs CBC & Chem 7: 02/08/17 07:15 02/09/17 07:04 Labs: Abnormal Lab Results - Last 24 Hours (Table) 02/08/17 02/09/17 Range/Units 07:15 07:04 Glucose 120 H (74-99) mg/dL Calcium 8.3 L (8.4-10.2) mg/dL Total Bilirubin 1.4 H (0.2-1.3) mg/dL Delta Bilirubin 0.8 H (0.0-0.2) mg/dL ALT 104 H (21-72) U/L Alkaline Phosphatase 374 H (38-126) U/L Total Protein 5.5 L (6.3-8.2) g/dL Albumin 2.6 L (3.5-5.0) g/dL Assessment and Plan (1) Pancreatitis Narrative/Plan: Secondary to choledocholithiasis Status: Acute (2) Elevated liver enzymes Status: Acute (3) Duodenal diverticulum Status: Chronic Plan: 1. ERCP. The refining supervisor has discussed the risks, benefits and alternative therapies for the above-mentioned procedure and for both sedation/analgesia as well as necessary blood product administration, if indicated, as they pertain to this patient. The patient has indicated understanding and acceptance of the risks and procedures discussed. Assessment and plan a care discussed with Dr. Grove
[2017-02-09] MEDS ORDERED: INDOMETHACIN 50MG SUPPOSITORY RECTAL ONE (11:30)
[2017-02-09] MEDS ORDERED: LEVOFLOXACIN 500MG-D5W PMX 500 MG in DEXTROSE/WATER 1 100ML.BAG IVPB ONE (11:30)
[2017-02-09] MEDS ORDERED: SODIUM CHLORIDE 0.9% 1,000 ML IV ONE (13:10)
[2017-02-09] MEDS ORDERED: LIDOCAINE 1% INJ 10MG/ML (20 ML MDV) ONE (13:13)
[2017-02-09] MEDS ORDERED: PROPOFOL 10 MG/ML 20 ML VIAL IV ONE (13:13)
[2017-02-09] MEDS ORDERED: MIDAZOLAM 2 MG/2 ML VIAL ONE (13:13)
[2017-02-09] MEDS ORDERED: fentaNYL (PF) 50 MCG/ML 2 ML AMP ONE (13:13)
[2017-02-09] MEDS ORDERED: IOHEXOL 300 MG/ML 50 ML BOTTLE MISCELLANE ONE (13:24)
--- NOTE | 2017-02-09 14:05 | P.PCN ---
Date of Procedure: 02/09/17 Preoperative Diagnosis: Postoperative Diagnosis: Procedure(s) Performed: Procedure: Endoscopic retrograde cholangiography with sphincterotomy and extraction of common bile duct stone using the 11.5 mm balloon catheter. Preoperative diagnosis: Acute pancreatitis and abnormal liver chemistries and abnormal MRI. Postoperative diagnosis: 1. Somewhat dilated common bile duct with a filling defect consistent with common bile duct stone. 2. Successful sphincterotomy and extraction of common bile duct stone using the 11.5 mm balloon catheter. Preparation sedation: Was provided by anesthesia. Brief clinical history: The patient is a 76-year-old male who was admitted with elevated liver enzymes, abdominal pain and pancreatitis. S/P cholecystectomy more than 10 years ago. MRI reported 2 common bile duct stones. Pancreatic enzymes have normalized. Liver enzymes improving total bilirubin 1.0. AST 43. ALT 104. Alkaline phosphates 374. CA-19-9 4.5. The details are summarized in the history and physical and dictated consultation and progress notes. This evaluation is to assess for common bile duct stone and to intervene accordingly. Procedure: With the patient in the prone position and after informed consent and adequate sedation, the Olympus video duodenoscope was passed down the esophagus into the stomach then passed through the pylorus into the duodenum and brought the papilla into view. There was a duodenal diverticulum in the vicinity of the papilla. Initial cannulation and injection with dye resulted in opacification of the biliary tree. There was one persistent filling defect measuring between 1 and one and a half centimeters consistent with a common bile duct stone. I then proceeded to exchange the catheter for a sphincterotome over a guidewire and performed adequate sphincterotomy. Following that, the 11.5 mm balloon catheter was used to extract the common bile duct stone. The patient tolerated the procedure well. Plan: The patient will be allowed clear liquids today and monitor overnight. Further plans based on his course. Implants: Indications for Procedure: Operative Findings: Description of Procedure:
--- NOTE | 2017-02-09 14:14 | CDI ---
In responding to this query, please exercise your independent professional judgment. The [facility] Coding Staff and Clinical Documentation Specialists appreciate your assistance in clarifying documentation, maintaining compliance with coding guidelines, accurately documenting patients condition and capturing severity of illness. The fact that a question is asked does not imply that any particular answer is desired or expected. Communication forms are a method of clarifying documentation and are not made part of the Legal Health Record. Thank you in advance for your clarification. Last Revision, April 2015 Gabbie Jackson [address] [place] [address] Documentation Clarification Form Date: 02/09/2017 1:40:00 PM From: Radha Contreras RN, CDS Admit Date: 02/07/2017 5:19:00 PM Patient Name: Herber Schwarz Visit Number: [id number] Dr. Christian Lacey 76 yo patient admitted for with complaints of abdominal pain on and off for 1 year that is worse when he eats. He has a history of previous cholecystectomy. Admitting diagnosis Pancreatitis. Patient history/risk factors: GERD, HTN, Clinical Indicators: Lab findings: AST 100 ALT 187 ALK PHOS 738 AMYLASE 354 LIPASE 1982 MRCP: "findings suggest 2 stones in distal common bile duct w/ mild ectasia of biliary tree, common bile duct not significantly dilated" ERCP scheduled 02/09, "pancreatitis 2nd to choledocholithiasis per GI progress note . " somewhat obstructive pattern could be from remnant bile duct stone has previous cholecystectomy per H&P. Treatment: GI consult, MRCP followed by ERCP on 02/09 In your professional opinion, can you please clarify? - Post Cholecystectomy Syndrome - Acute Pancreatitis - Other - Unable to determine Please document in your progress notes and discharge summary in order to capture severity of illness and risk of mortality. Include clinical findings that support your diagnosis. FYI: Press F11 to launch patient chart. Thank you. LUIS
[2017-02-09] MEDS: LATANOPROST 0.005% OPHTH DROPS 2.5 ML BTL BOTH EYES SCH (20:28)
--- NOTE | 2017-02-10 07:33 | FL ---
FLUOROSCOPY 4.02 minutes of fluoroscopy time were utilized during ERCP. 1 images document the procedure.
[2017-02-10 07:59] VITALS: BP 128/69; PULSE 60; TEMP 97.8
[2017-02-10 08:21] LABS: Amylase 47 U/L (30-110); Anion Gap 7 mmol/L; Blood Urea Nitrogen 11 mg/dL (9-20); Calcium 8.2 mg/dL (8.4-10.2); Carbon Dioxide 27 mmol/L (22-30); Chloride 107 mmol/L (98-107); Glucose 111 mg/dL (74-99); Non-African American GFR(MDRD) >60 (>60 ml/min/1.73 sqM); Potassium 3.7 mmol/L (3.5-5.1); Sodium 141 mmol/L (137-145)
[2017-02-10] MEDS: DEXTROSE 5%-0.9% NACL 1,000 ML IV SCH ×2 (08:34→12:27)
[2017-02-10] MEDS: ESCITALOPRAM 10 MG TAB PO SCH (08:38)
[2017-02-10] MEDS: PANTOPRAZOLE 40 MG TABLET PO SCH (08:38)
[2017-02-10] MEDS: DORZOLAMIDE-TIMOLOL 2-0.5% DROPS 10 ML BTL BOTH EYES SCH (08:39)
--- NOTE | 2017-02-10 10:06 | P.PN ---
Subjective Principal diagnosis: Pancreatitis elevated liver enzymes Status post ERCP with stone removal. Feels better this morning. Tolerating liquids. Afebrile. Anticipating discharge. Objective - Vital Signs Vital signs: Vital Signs Temp 97.8 F 02/10/17 07:00 Pulse 60 02/10/17 07:00 Resp 16 02/10/17 07:00 BP 128/69 02/10/17 07:00 Pulse Ox 98 02/10/17 07:00 Intake & Output 02/09/17 02/10/17 02/10/17 18:59 06:59 18:59 Intake Total 400 50 720 Balance 400 50 720 Intake: IV 400 Oral 50 720 Other: Voiding Method Toilet # Voids 1 - Exam General appearance: The patient is alert, oriented, in no acute distress. HET: Head is normocephalic and atraumatic. Pupils are equal and reactive. Oropharynx is clear without lesions. Neck: Supple without lymphadenopathy. Trachea midline. Heart: S1 S2. Regular rate and rhythm. Lungs: No crackles or wheezes are heard. Abdomen: Soft, nontender, nondistended with bowel sounds. No peritoneal signs. No palpable organomegaly or masses. Extremities: Normal skin color and turgor. No cyanosis, rash, ulceration, clubbing, or edema. Radial and pedal pulses are 2/4 bilaterally. Neurological: No focal deficits. Strength and sensation are grossly intact. - Labs CBC & Chem 7: 02/08/17 07:15 02/10/17 07:10 Labs: Abnormal Lab Results - Last 24 Hours (Table) 02/10/17 Range/Units 07:10 Glucose 111 H (74-99) mg/dL Calcium 8.2 L (8.4-10.2) mg/dL Assessment and Plan (1) Pancreatitis Narrative/Plan: Biliary pancreatitis secondary to choledocholithiasis Status: Acute (2) Elevated liver enzymes Status: Acute (3) Duodenal diverticulum Status: Chronic Plan: 1. Discharge per medicine. 2. Advance diet. 3. Follow-up with GI as needed. Assessment and plan a care discussed with Dr. Grove
--- NOTE | 2017-02-10 13:18 | PN ---
PROGRESS NOTE Date of Service: 02/09/2017 PRESENTING COMPLAINT: Abdominal pain. INTERVAL HISTORY: This is a patient with prior cholecystectomy presents with acute pancreatitis with somewhat obstructing pattern of hepatitis due for an ERCP today. Abdominal pain is somewhat better. Lying in bed. is at bedside. REVIEW OF SYSTEMS: Review of systems done for constitutional, cardiovascular, GI, pulmonary; relevant findings as above. CURRENT MEDICATIONS: Current medications are reviewed that includes IV fluids. PHYSICAL EXAMINATION: On examination, temperature 98, pulse 69, respirations 16, blood pressure 142/79, pulse ox 96% on room air. GENERAL APPEARANCE: Lying in bed, comfortable. EYES: Pupils equal. Conjunctivae normal. NECK: JVD not raised. Mass not palpable. RESPIRATORY: Effort normal. LUNGS: Decreased breath sounds. CARDIOVASCULAR: First and second heart sounds normal. No edema. ABDOMEN: Soft, minimal epigastric tenderness. No guarding or rigidity. Liver and spleen not palpable. PSYCHIATRIC: Alert and oriented x3. Mood and affect were normal. INVESTIGATIONS: Potassium 4.1. AST 43, ALT 104, alkaline phosphatase 374. Lipase is down to 254. ASSESSMENT: 1. Acute pancreatitis with elevated LFT somewhat obstructive pattern could be from remnant bile duct stone in a patient who has already had previous cholecystectomy with clinical and biochemical improvement. 2. Essential hypertension. 3. Gastroesophageal reflux disease. 4. Right atrophic kidney. 5. Chronic diverticulosis. 6. Chronic gastritis. 7. Depression, not otherwise specified. 8. Hard of hearing. PLAN: Care was discussed with the patient and by the bedside. Patient going for an ERCP this afternoon. On the clinical and biochemical side, patient actually looking somewhat better. We will see what the procedure shows and go from there. MMODL / IJN: [id number] /
--- NOTE | 2017-02-11 20:40 | DS ---
DISCHARGE SUMMARY FINAL DIAGNOSES: 1. Acute gallstone pancreatitis resulting from a stone in the common bile duct with a prior history of cholecystectomy. 2. Essential hypertension. 3. Gastroesophageal reflux disease. 4. Right atrophic kidney. 5. Chronic colonic diverticulosis. 6. Chronic gastritis. 7. Depression, not otherwise specified. 8. Hard of hearing. HOSPITAL COURSE: This patient presented with abdominal pain on and off for some time. Found to have acute pancreatitis. Lipase was normalized by the time of discharge. The patient did undergo an MRCP followed by ERCP and sphincterotomy with a common bile duct stone was extracted. At the time of discharge doing much better. Abdomen is soft, nontender. Lungs are clear. Care was discussed with the patient and . Questions were answered. Discharge planning more than 35 minutes. CONSULTATIONS: Dr. Grove from GI. PROCEDURE: ERCP. DISCHARGE MEDICATIONS: Lexapro 10 mg p.o. daily, Dorzolamide/Timolol 2% and 0.5% 1 drop to both eyes daily, 0.005% 1 drop to both eyes q.h.s., omeprazole 20 mg p.o. b.i.d., Gas-X 125 mg p.o. q.6 p.r.n., Mylanta 1 tablet p.o. daily p.r.n. DISPOSITION: Home. Follow up with Dr. Cronin 02/17/17. DIET: Soft, bland and advance as tolerated. Follow up with Dr. Grove p.r.n. SUNNY / ABBI: [id number] /
== END 2017-02-10 12:20 | disposition home or self-care (01) | DRG 439 ==
LOC: EC 15:27 → 5MS5E 17:19
PROVIDERS: ADMIT Hospitalist; ATTEND Hospitalist
PROC: 0FC98ZZ Extirpation of Matter from Common Bile Duct, Via Natural or Artificial Opening Endoscopic (ICD-10-PCS; principal; 2017-02-09 12:30)
DX: K85.10 Biliary acute pancreatitis without necrosis or infection (principal); K91.86 Retained cholelithiasis following cholecystectomy; I12.9 Hypertensive chronic kidney disease with stage 1 through stage 4 chronic kidney disease, or unspecified chronic kidney disease; F32.9 Major depressive disorder, single episode, unspecified; H40.9 Unspecified glaucoma; H91.90 Unspecified hearing loss, unspecified ear; K21.9 Gastro-esophageal reflux disease without esophagitis; K29.50 Unspecified chronic gastritis without bleeding; F41.9 Anxiety disorder, unspecified; K57.10 Diverticulosis of small intestine without perforation or abscess without bleeding; N18.9 Chronic kidney disease, unspecified; Z79.899 Other long term (current) drug therapy; Z87.891 Personal history of nicotine dependence
CPT/HCPCS: 36415; 43262; 43264; 74000; 74177; 74181; 74330; 80048; 80053; 81003; 82150; 82248; 83690; 85025; 86301; 96361; 96374; 99285

== ENCOUNTER → 2017-02-15 | Outpatient (CLI) | payer MEDICARE ==
[2017-02-15 10:33] LABS: ALT 75 U/L (21-72); AST 30 U/L (17-59); Alkaline Phosphatase 222 U/L (38-126); Anion Gap 11 mmol/L; Blood Urea Nitrogen 18 mg/dL (9-20); Calcium 9.7 mg/dL (8.4-10.2); Carbon Dioxide 25 mmol/L (22-30); Chloride 103 mmol/L (98-107); Glucose 96 mg/dL (74-99); Non-African American GFR(MDRD) >60 (>60 ml/min/1.73 sqM); Potassium 4.9 mmol/L (3.5-5.1); Sodium 139 mmol/L (137-145); Total Bilirubin 0.7 mg/dL (0.2-1.3); Total Protein 7.1 g/dL (6.3-8.2)
== END | disposition home or self-care (01) ==
LOC: LABWHC1 09:11
PROVIDERS: ATTEND Nurse Practitioner Acute Care
DX: K85.10 Biliary acute pancreatitis without necrosis or infection (principal); K91.86 Retained cholelithiasis following cholecystectomy; I12.9 Hypertensive chronic kidney disease with stage 1 through stage 4 chronic kidney disease, or unspecified chronic kidney disease
CPT/HCPCS: 36415; 80053

== ENCOUNTER → 2017-12-26 | Outpatient (CLI) | payer MEDICARE ==
--- NOTE | 2017-12-26 16:11 | NM ---
EXAMINATION TYPE: NM bone scan whole body, NM bone SPECT DATE OF EXAM: 12/26/2017 COMPARISON: Plain film 12/21/2017 from outside institution HISTORY: Spondylosis without myelopathy, back pain, trauma one month prior Delayed whole-body scanning was performed following the injection of 22.1 mCi Tc 99m MDP. Images acq uired 3.5 hours post injection. SPECT images also performed lumbar spine. FINDINGS: There is a bandlike area of increased radio pharmaceutical of uptake at approximately L4-5 levels whi ch correlates with superior endplate depressions seen on plain film. Some mild uptake also suspected at S1, L3 levels, likely posttraumatic Uptake compatible with degenerative change, facet arthropathy also noted IMPRESSION: Abnormal uptake likely due to osteoporotic posttraumatic changes.
== END | disposition home or self-care (01) ==
LOC: RADNMMAIN 10:11
PROVIDERS: ATTEND Physical Medicine & Rehabilitation
DX: M47.817 Spondylosis without myelopathy or radiculopathy, lumbosacral region (principal)
CPT/HCPCS: 78306; 78320; A9503

== ENCOUNTER 2018-02-09 19:07 | Emergency (ER) | payer MEDICARE ==
[2018-02-09 19:19] VITALS: RESP 18; TEMP 98
--- NOTE | 2018-02-09 20:05 | XR ---
EXAMINATION TYPE: XR chest 1V DATE OF EXAM: 02/09/2018 COMPARISON: NONE HISTORY: Syncope TECHNIQUE: Single frontal view of the chest is obtained. FINDINGS: There is no heart failure nor confluent pneumonic infiltrate. Thoracic aorta is atheromato us. Costophrenic angles are clear. There is cervical spine fusion surgery. IMPRESSION: No active cardiopulmonary disease. Atheromatous aorta.
--- NOTE | 2018-02-09 20:06 | XR ---
EXAMINATION TYPE: XR pelvis AP view DATE OF EXAM: 02/09/2018 COMPARISON: NONE HISTORY: Fall. Pain. TECHNIQUE: 2 views FINDINGS: The pelvic ring is intact. Proximal femurs and hip joints are intact. There is mild symmetr ic acetabular spurring. Sacroiliac joints are intact. IMPRESSION: No acute abnormality of the pelvis.
--- NOTE | 2018-02-09 20:29 | CT ---
EXAMINATION TYPE: CT brain ivania muse DATE OF EXAM: 02/09/2018 COMPARISON: None HISTORY: Fall. Headache. Neck pain. CT DLP: 1553.3 mGycm Automated exposure control for dose reduction was used. TECHNIQUE: CT scan of the head and cervical spine are performed without contrast. FINDINGS: There is cerebral cortical atrophy. There is no mass effect nor midline shift. There is n o sign of intracranial hemorrhage. The calvarium is intact. The cervical vertebra have normal alignment. There is plate with screws fusing anteriorly the cervica l spine from C5 to C7. The facet joints show multilevel hypertrophic degenerative changes. The skull base is intact. There is anterior bridging osteophyte formation at C2-3 and C3-4 C4-5. IMPRESSION: Cerebral atrophy. No acute intracranial abnormality. Previous cervical spine fusion surgery. No fracture seen. Spondylotic changes.
[2018-02-09] MEDS ORDERED: SODIUM CHLORIDE 0.9% 1,000 ML IV STA (20:55)
[2018-02-09] MEDS ORDERED: MAGNESIUM OXIDE 400 MG TAB PO STA (20:55)
[2018-02-09] MEDS ORDERED: POTASSIUM BICARBONATE/CIT AC 20 MEQ TABLET.EFF PO ONE (20:55)
--- NOTE | 2018-02-09 20:58 | ED ---
General Adult HPI - General Chief complaint: Fall Stated complaint: Fall Time Seen by Provider: 02/09/18 19:09 Source: patient, EMS, RN notes reviewed, old records reviewed Mode of arrival: EMS Limitations: no limitations - History of Present Illness Initial comments: This is a 77-year-old male the ER for evaluation per patient does say for evaluation regarding weakness falls and weakness. Patient does have history of alcoholism daily drinker. Patient was drinking more than a stress today. He states he was traumatic ambulate became very weak and had to lay himself to the ground. Denies injury from fall. But again is positive intoxicated. Patient is able to urinate here in the ER he did fill entire liter of urine, patient currently denies any complaints, states weakness has resolved - Related Data Home Medications Medication Instructions Recorded Confirmed Escitalopram [Lexapro] 10 mg PO DAILY 12/12/13 02/09/18 Dorzolamide-Timolol 2%/0.5% 1 drop BOTH EYES DAILY 11/16/16 02/09/18 Latanoprost Ophth [Xalatan 0.005%] 1 drops BOTH EYES HS 11/16/16 02/09/18 Acetaminophen Tab [Tylenol Tab] 325 mg PO Q4H PRN 02/09/18 02/09/18 Aspirin EC [Ecotrin Low Dose] 81 mg PO DAILY 02/09/18 02/09/18 Atorvastatin [Lipitor] 10 mg PO DAILY 02/09/18 02/09/18 Cyanocobalamin (Vitamin B-12) 1,000 mcg PO DAILY 02/09/18 02/09/18 [Vitamin B-12] Allergies Allergy/AdvReac Type Severity Reaction Status Date / Time No Known Allergies Allergy Verified 02/09/18 19:53 Review of Systems ROS Statement: Those systems with pertinent positive or pertinent negative responses have been documented in the HPI. ROS Other: All systems not noted in ROS Statement are negative. Past Medical History Past Medical History: Atrial Fibrillation, GERD/Reflux, Hypertension Additional Past Medical History / Comment(s): Atrophic (R) kidney, DIVERTICULOSIS(PER COLONOSCOPY),GLAUCOMA,GASTRITIS, ANXIETY,leaky valve History of Any Multi-Drug Resistant Organisms: None Reported Past Surgical History: Cholecystectomy, Orthopedic Surgery Additional Past Surgical History / Comment(s): COLONOSCOPY, THUMB JOINT SX, CERVICAL SX W/ HJARDWARE Past Anesthesia/Blood Transfusion Reactions: Postoperative Nausea & Vomiting ( PONV) Past Psychological History: Anxiety Smoking Status: Former smoker Past Alcohol Use History: Daily Past Drug Use History: None Reported - Past Family History Mother Family Medical History: Cancer Additional Family Medical History / Comment(s): BREAST CANCER Father Family Medical History: Cancer Additional Family Medical History / Comment(s): COLON CANCER General Exam - General Exam Comments Initial Comments: No focal neurological findings found Limitations: no limitations General appearance: alert, in no apparent distress Head exam: Present: atraumatic, normocephalic, normal inspection Eye exam: Present: normal appearance, PERRL, EOMI. Absent: scleral icterus, conjunctival injection, periorbital swelling ENT exam: Present: normal exam, mucous membranes moist Neck exam: Present: normal inspection. Absent: tenderness, meningismus, lymphadenopathy Respiratory exam: Present: normal lung sounds bilaterally. Absent: respiratory distress, wheezes, rales, rhonchi, stridor Cardiovascular Exam: Present: regular rate, normal rhythm, normal heart sounds. Absent: systolic murmur, diastolic murmur, rubs, gallop, clicks GI/Abdominal exam: Present: soft, normal bowel sounds. Absent: distended, tenderness, guarding, rebound, rigid Extremities exam: Present: normal inspection, full ROM, normal capillary refill. Absent: tenderness, pedal edema, joint swelling, calf tenderness Back exam: Present: normal inspection Neurological exam: Present: alert, oriented X3, CN II-XII intact Psychiatric exam: Present: normal affect, normal mood Skin exam: Present: warm, dry, intact, normal color. Absent: rash Course Vital Signs 02/09/18 19:14 Temperature 98.0 F Pulse Rate 80 Respiratory 18 Rate Blood Pressure 167/89 O2 Sat by Pulse 98 Oximetry - Reevaluation(s) Reevaluation #1: 02/09/18 20:56 \Patient's strength is returned, patient is able to walk and ambulate Medical Decision Making - Medical Decision Making 77 male the ER for evaluation weakness. Patient drinking throughout the day states he is an episode of weakness and was unable to move extremity strength to symptoms as have thus resolved. Patient's is able to urinate without difficulty has no pain and able to ambulate without difficulty. Patient can be discharged home - Radiology Data Radiology results: report reviewed (CT brain C-spine x-ray pelvis and chest are negative), image reviewed Disposition Clinical Impression: Fall, Alcohol intoxication, Weakness Disposition: HOME SELF-CARE Condition: Good Instructions: Alcohol Intoxication (ED) Is patient prescribed a controlled substance at d/c from ED?: No Referrals: Nonstaff,Physician [Primary Care Provider] - 1-2 days
[2018-02-09 21:55] VITALS: BP 126/78; PULSE 67
== END 2018-02-09 21:55 | disposition home or self-care (01) ==
LOC: EC 19:07
DX: F10.120 Alcohol abuse with intoxication, uncomplicated (principal); R53.1 Weakness; I10 Essential (primary) hypertension; H40.9 Unspecified glaucoma; F41.9 Anxiety disorder, unspecified; Z87.891 Personal history of nicotine dependence; Z79.82 Long term (current) use of aspirin; Z79.899 Other long term (current) drug therapy; W19.XXXA Unspecified fall, initial encounter; Y92.009 Unspecified place in unspecified non-institutional (private) residence as the place of occurrence of the external cause
CPT/HCPCS: 70450; 71045; 72125; 72170; 96360; 99284

== ENCOUNTER → 2021-12-01 | Outpatient (CLI) | payer MEDICARE ==
--- NOTE | 2021-12-01 17:16 | NM ---
EXAMINATION TYPE: NM bone scan whole body DATE OF EXAM: 12/01/2021 COMPARISON: Prior bone scan 12/26/2017, CT dated 02/07/2017 HISTORY: Spondylosis Delayed whole-body scanning was performed following the injection of 23.2 mCi Tc 99m MDP. Images acq uired 3.5 hours post injection. FINDINGS: Uptake within the feet, knees, hands and wrists, shoulders, sternoclavicular joints, hips is likely d egenerative. There is uptake in the costovertebral angles in the midthoracic spine at approximately T 9 level, multi level uptake present within the thoracic, cervical, lumbar spine is likely degenerativ e, there is a lumbar spinal curvature. The right kidney is not seen. Uptake in the maxilla and mandib le likely due to periodontal disease. IMPRESSION: Degenerative changes. 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
== END | disposition home or self-care (01) ==
LOC: RADNMMAIN 11:11
PROVIDERS: ATTEND Physical Medicine & Rehabilitation
DX: M47.816 Spondylosis without myelopathy or radiculopathy, lumbar region (principal); Q61.4 Renal dysplasia
CPT/HCPCS: 78306; A9503

== ENCOUNTER → 2022-11-30 | Outpatient (CLI) | payer MEDICARE ==
[2022-11-30 16:38] LABS: Appearance,Urine Clear (Clear); Bilirubin,Urine Negative (Negative); Blood,Urine Negative (Negative); Color,Urine Yellow (Yellow); Ketones,Urine Negative (Negative); Nitrite,Urine Negative (Negative); PH, Urine 5.5; Specific Gravity,Urine 1.023 (1.001-1.030); Urobilinogen,Urine 0.2 E.U./DL
[2022-11-30 19:14] LABS: HCT 49.2 % (39.6-50.0); HGB 15.2 d/dL (12.0-15.0); MCHC 30.9 d/dL (32.0-37.0); MCV 100.4 FL (80.0-97.0); NRBC Per 100 WBC 0 X 10*3/uL (0.00-0.01); Platelet Count 172 X 10*3/uL (140-440); RDW 12.2 % (11.5-14.5); WBC 8.44 X 10*3/uL (4.50-10.00)
[2022-11-30 22:39] LABS: ALT 19 U/L (10-49); AST 18 U/L (14-35); Albumin 4.6 d/dL (3.8-4.9); Albumin/Globulin Ratio 1.77 Ratio (1.60-3.17); Alkaline Phosphatase 88 U/L (41-126); Blood Urea Nitrogen 16.2 mg/dL (9.0-27.0); Calcium 10.1 mg/dL (8.7-10.3); Carbon Dioxide 24.9 mmol/L (21.6-31.8); Chloride 105 mmol/L (96-109); Globulin 2.6 d/dL (1.6-3.3); Glucose 106 mg/dL (70-110); Potassium 4.3 mmol/L (3.5-5.5); Sodium 143 mmol/L (135-145); Total Bilirubin 0.6 mg/dL (0.3-1.2); Total Protein 7.2 d/dL (6.2-8.2)
== END | disposition home or self-care (01) ==
LOC: LABPAT 09:44
PROVIDERS: ATTEND Orthopaedic Surgery
DX: Z01.818 Encounter for other preprocedural examination (principal); E11.9 Type 2 diabetes mellitus without complications; M16.12 Unilateral primary osteoarthritis, left hip; I44.4 Left anterior fascicular block; I44.0 Atrioventricular block, first degree; R00.1 Bradycardia, unspecified; R94.31 Abnormal electrocardiogram [ECG] [EKG]
CPT/HCPCS: 80053; 81003; 83036; 85027; 87070; 93005

== ENCOUNTER → 2022-12-02 | Outpatient (CLI) | payer MEDICARE ==
[2022-12-02 11:45] LABS: Partial Thromboplastin Time 23.4 sec (22.0-30.0); Prothrombin Time 10.8 sec (9.0-12.0)
== END | disposition home or self-care (01) ==
LOC: LABWHC1 10:50
PROVIDERS: ATTEND Orthopaedic Surgery
DX: Z01.812 Encounter for preprocedural laboratory examination (principal); M16.12 Unilateral primary osteoarthritis, left hip
CPT/HCPCS: 36415; 85610; 85730

== ENCOUNTER 2022-12-08 13:27 | Inpatient (IN) | payer MEDICARE ==
[~2022-12-08 13:27] MED LIST changes: +ACETAMINOPHEN TAB 500 MG TAB PO PRN; +DEXAMETHASONE SOD PHOSPHATE 10 MG/ML 1 ML VIAL IV PRN; +DOCUSATE 100 MG CAP PO PRN; +FAMOTIDINE 20 MG/2 ML VIAL IVP PRN; +KETOROLAC 15 MG/ML 1 ML VIAL IVP PRN; -LACTATED RINGERS 1,000 ML IV SCH; +ONDANSETRON 4 MG/2 ML VIAL IVP PRN; +ROPIVACAINE/EPI/CLONIDINE/KET 50 ML SYRINGE MISCELLANE PRN; +TRANEXAMIC 1,000 MG/100ML-NACL 1,000 MG in SALINE 1 100ML.BAG IV PRN; +TRANEXAMIC 1,000 MG/100ML-NACL 1,000 MG in SALINE 1 100ML.BAG IVPB PRN; +oxyCODONE ER 10 MG TAB.ER.12H PO PRN
[2022-12-08] MEDS ORDERED: LIDOCAINE 1% (10MG/ML) FOR IV START INTRADERMA PRN (13:37)
[2022-12-08] MEDS ORDERED: HYDROmorphone 0.5 MG/0.5 ML SYRINGE IVP PRN ×3 (13:37→18:57)
[2022-12-08] MEDS: LACTATED RINGERS 1,000 ML IV SCH ×2 (14:22→21:49)
[2022-12-08] MEDS ORDERED: MIDAZOLAM 2 MG/2 ML VIAL IVP ONE (14:45)
[2022-12-08] MEDS ORDERED: fentaNYL (PF) 50 MCG/ML 2 ML AMP IVP ONE (14:46)
--- NOTE | 2022-12-08 15:02 | P.ANPRN ---
Procedure Note - Anesthesia - Nerve Block Performed Left Arnoldo Single Time Out Performed: Yes ([id number]) Date of Procedure: 12/08/22 Procedure Start Time: 14:46 Procedure Stop Time: 14:52 Location of Patient: PreOp Indication: Acute Post-Operative Pain, Requested by Surgeon Specifically requested for management of pain by DrCaio: Marin Oswald Sedation Type: Sedate with meaningful contact maintained Preparation: Sterile Prep Position: Supine Catheter: None Needle Types: Pajunk Needle Gauge: 21 Ultrasound used to visualize needle placement: Yes Ultrasound used to observe medication spread: Yes Injectate: 0.5% Ropivacaine (see comment for volume) (30cc) Blood Aspirated: No Pain Paresthesia on Injection Noted: No Resistance on Injection: Normal Image Stored and Saved: Yes Events: Uneventful and Well Tolerated
[2022-12-08] MEDS ORDERED: SUCCINYLCHOLINE CHLORIDE 200 MG/10 ML VIAL IV ONE (16:09)
[2022-12-08] MEDS ORDERED: HYDROmorphone (PF) 1 MG/ML ONE (16:09)
[2022-12-08] MEDS ORDERED: NEOSTIGMINE 1 MG/ML 10 ML VIAL ONE (16:09)
[2022-12-08] MEDS ORDERED: SODIUM CHLORIDE 4MEQ/ML 30 ML VIAL ONE (16:09)
[2022-12-08] MEDS ORDERED: fentaNYL (PF) 50 MCG/ML 2 ML AMP ONE (16:09)
[2022-12-08] MEDS ORDERED: ePHEDrine 50 MG/ML 1 ML VIAL ONE (16:09)
[2022-12-08] MEDS ORDERED: LIDOCAINE 2% INJ 20 MG/ML (2 ML VIAL) ONE (16:09)
[2022-12-08] MEDS ORDERED: ROPIVACAINE 5 MG/ML 30 ML VIAL ONE (16:09)
[2022-12-08] MEDS ORDERED: PROPOFOL 10 MG/ML 20 ML VIAL IV ONE (16:09)
[2022-12-08] MEDS ORDERED: ROCURONIUM 10 MG/ML (5 ML VIAL) IV ONE (16:09)
[2022-12-08] MEDS ORDERED: LACTATED RINGERS 1,000 ML IV ONE (17:40)
[2022-12-08] MEDS ORDERED: HYDROcodone/APAP 5-325MG 1 EACH TAB PO PRN (18:57)
[2022-12-08] MEDS ORDERED: NALOXONE 0.4 MG/ML 1 ML VIAL IV PRN (18:57)
[2022-12-08] MEDS ORDERED: hydrOXYzine pamoate 25 MG CAP PO PRN (18:57)
[2022-12-08] MEDS ORDERED: ONDANSETRON 4 MG/2 ML VIAL IVP PRN (18:57)
--- NOTE | 2022-12-08 18:57 | P.OP ---
Date of Procedure: 12/08/22 Preoperative Diagnosis: 1. Severe left hip osteoarthritis 2. History of prior nephrectomy Postoperative Diagnosis: Same Procedure(s) Performed: Left direct anterior total hip arthroplasty Implants: 1. Cr Trident II Acetabular Cup, Size #54 2. [place] Accolade C Size # 4 Femoral Stem High Offset 3. Biolox delta femoral head, 36 mm, +0 neck Anesthesia: SERINAA, regional Surgeon: Marin Oswald Light Bulb Replacer #1: Ana Garcia Estimated Blood Loss (ml): 400 IV fluids (ml): 1,100 Pathology: none sent Condition: stable Disposition: PACU Indications for Procedure: I had a long discussion with the patient in the office on the potential risks and complications of an elective total hip replacement through a direct anterior approach. Risks discussed include, but are certainly not limited to, risks from anesthesia, superficial infection requiring local wound care or antibiotics, deep sheyla-prosthetic joint infection and the treatment required to eradicate infection, intraoperative fracture, postoperative periprosthetic fracture, damage to local blood vessels or nerves particularly the lateral femoral cutaneous nerve, delayed wound healing requiring local wound care or possibly surgical debridement, hip dislocation, leg length discrepancy, soft tissue irritation around the total hip implant such as iliopsoas tendinitis or trochanteric bursitis, wear and osteolysis from the implants, squeaking or audible noises, groin pain, thigh pain, heterotopic ossification, stiffness, aseptic loosening of the implants, dissatisfaction with surgical outcome, need for revision surgery, DVT, PE, swelling of the operative extremity, acute coronary event, stroke, failure to thrive, and possibly loss of life or limb. The patient understands that while these are the most common complications after an elective hip replacement there are certainly other less common complications possible. They were given ample time to ask questions regarding the potential complications of a hip replacement. Following our discussion the patient provided their verbal and written consent to go forward with an elective total hip replacement. Operative Findings: Severe left hip osteoarthritis with large clear effusion. The patient had relatively poor bone quality with a large cyst in the femoral neck. Based on this the patient's age (82 years old) I elected to use hybrid fixation with a press-fit cup and a cemented stem. Description of Procedure: The patient was identified in the preoperative holding area and the correct hip was marked with my initials. I reviewed the procedure and consent with the patient. All of their questions were answered. The patient was then brought back into the operating room by anesthesia. While on the [facility] anesthesia was administered by the anesthesia team. Preoperative antibiotics and tranexamic acid were also given. After the patient was under anesthesia I examined their ankles to determine their preoperative leg length discrepancy. The skin over the anterior aspect of the hip was shaved to remove hair over the site of planned incision. Both feet and ankles were padded with webril and boots for the [place] were applied. The patient was then carefully transferred onto the [place] table. A perineal post was immediately placed. The arms were placed on arm holders and were well-padded. Both boots were secured to the spars on the [place] table. The patient was positioned so that the pelvis was centered over the post. Nonsterile drapes were applied. A timeout was performed identifying the correct patient, operative extremity, and procedure. At this point fluoroscopy was brought in to take preoperative images of the pelvis and operative hip. Using the standing AP pelvis from the office as a template, a comparable image was obtained with fluoroscopy. A metallic bar was used to create a bi-ischial line for use as a reference to leg length adjustments during the procedure. Global offset was also measured on both the operative and nonoperative leg. Fluoroscopy was then brought out and a pre-scrub using a chlorhexidine scrub brush was performed. The operative limb was then prepped and draped in the standard sterile fashion. An anterior longitudinal incision was made lateral and distal to the ASIS. The skin and subcutaneous tissues were incised sharply. The underlying tensor fascia was identified and incised in its midportion. The fascia was dissected free from the underlying muscle and the muscle belly was retracted. A blunt tipped cobra retractor was placed over the superior neck under the muscle fibers of the gluteus minimus. The deep enveloping fascia of the tensor was incised. The anterior leash of vessels were then identified and cauterized. The fascia between the rectus and the capsule was then incised and the pre-capsular fat was excised. A second Cobra was placed inferior to the neck. The interval between the rectus and iliocapsularis and the hip capsule was developed and a retractor was placed carefully over the anterior rim of the acetabulum. A T-shaped anterior capsulotomy was performed. The superior capsular leaflet was left in place in the inferior capsular flap was excised. The Cobra retractors were placed intracapsularly. We then made a femoral neck osteotomy according to preoperative and intraoperative templating and confirmed the level of the osteotomy using fluoroscopic imaging. The femoral head was removed, passed off to the back table, and sized. The superior capsular flap was excised. Retractors were placed circumferentially exposing the acetabulum. We then circumferentially debrided the acetabulum free of labrum and osteophytes. The pulvinar was removed to fully visualize the cotyloid fossa. We then sequentially reamed to achieve peripheral fit and excellent bleeding subchondral bone. The socket was thoroughly irrigated. The acetabular component was impacted into the appropriate position using fluoroscopy to guide version, inclination, and depth of insertion taking care to have a comparable image of the AP pelvis to the standing image taken in the office. An excellent press-fit was achieved and final position was confirmed using fluoroscopy. The press fit was augmented with bony cancellus dome screws. The liner was then impacted into the socket. Attention was then turned to the femur. The remnant dorsal lateral capsule was excised. The short external rotators were visible and protected. A bone hook was used to confirm appropriate translation of the trochanter away from the acetabulum. The leg was then extended and adducted and the bone hook was used to elevate the femur for broaching. On inspection of the patient's proximal femur, they appeared to have poor bone quality so I elected to proceed with cemented fixation of the femoral component. A box osteotome and blunt tipped canal sound was then utilized to gain access to the femoral canal. We then sequentially broached the femur in appropriate anteversion until torsional stability was achieved and the implant was felt to have reached the appropriate size to allow trialing. The neck cut was brought flush to the trial broach with a calcar planar. A trial neck and head were then placed onto the broach and the hip was atraumatically reduced under direct visualization. External rotation to 90 was performed to assess stability. Fluoroscopy was brought in. An AP and lateral fluoroscopic image of the proximal femur was obtained to assess position and fill of the trial broach. An AP of the pelvis was then obtained and matched to the preoperative image taken. A bi-ischial bar was then placed and measurements were taken to assess changes in length and offset. The hip was then carefully dislocated, the proximal femur was exposed, and the trial implants were removed. The proximal femur was then prepared for cementing. The canal was thoroughly irrigated with pulsatile lavage to remove blood and marrow contents. A cement restrictor was placed to a depth just distal to the tip of the final implant. Epinephrine-soaked gauze was then packed into the proximal femur. 2 bags of cement were then mixed using a centrifuge and placed into a cement gun. Anesthesia was notified that cementing was about to commence to make sure the patient was appropriately ventilated and hydrated. Once the cement had reached appropriate consistency, the cement gun was used to fill the canal in a retrograde fashion starting at the restrictor. Cement was then pressurized into the canal with a blue tipped electroplating sales representative. The stem was then carefully introduced into the cement taking care to guide the implant into appropriate version. The stem was held in position until the cement had fully set. All extra cement was removed while the cement was hardening. The trunnion was cleansed and the final head was tapped into place to engage the Ricks taper. The acetabulum was irrigated and visualized to be free of debris. The hip was carefully reduced. Stability was checked clinically with external rotation to 90 and there was no evidence of instability. Final fluoroscopic images were taken. The wound was then thoroughly irrigated and soaked with a dilute Betadine rinse for 3 minutes. 3 L of sterile saline was irrigated through the wound using pulsatile lavage. Local anesthetic cocktail was injected into the soft tissues around the surgical field. A deep drain was placed. The wound was then closed in layers. A sterile dressing was placed over the surgical incision and drain site. The drapes were taken down and the patient was carefully transferred off of the [place] table. Following removal of the boots the leg lengths felt acceptable. The patient was then taken to recovery room having tolerated the procedure well. Ana Garcia PA-C was required as a skilled family readiness support assistant for patient positioning, surgical exposure, retraction, placement of implants, and closure of the surgical wound. PLAN: The patient can weight-bear as tolerated on the operative extremity. 2 doses of postoperative antibiotics. DVT prophylaxis with aspirin 81 mg twice a day based on preoperative risk stratification. Physical therapy for gait training. Discontinue drain postoperative day #1 if output is less than 100 mL per shift.
[2022-12-08] MEDS: HYDROcodone/APAP 5-325MG 1 EACH TAB PO PRN (21:16)
--- NOTE | 2022-12-08 21:17 | FL ---
EXAMINATION TYPE: FL guidance operating room, XR Hip Limited LT DATE OF EXAM: 12/08/2022 CLINICAL HISTORY: Pelvic pain and osteoarthritis. TECHNIQUE: Fluoroscopy. Intraoperative limited views left hip. COMPARISON: Pelvic x-ray on 8. FINDINGS: Fluoroscopic guidance was provided during left hip replacement procedure performed by Dr. Oswald. A total of 76 seconds of fluoroscopic time was utilized during the procedure and 7 spot im ages was acquired. Images acquired show placement of metallic hardware from total left hip arthroplasty which appears sa tisfactory in position on frontal projection. IMPRESSION: As Above.
[2022-12-08] MEDS: SENNOSIDES-DOCUSATE SODIUM 1 EACH TAB PO SCH (21:56)
[2022-12-08] MEDS: ASPIRIN 81 MG PO SCH (21:56)
[2022-12-09] MEDS: HYDROcodone/APAP 5-325MG 1 EACH TAB PO PRN ×2 (02:34→23:50)
[2022-12-09] MEDS: HYDROmorphone 0.5 MG/0.5 ML SYRINGE IVP PRN ×2 (04:08→20:30)
[2022-12-09 06:19] LABS: Basophils % (A) 0 %; Eosinophils # (A) 0.1 k/uL (0-0.7); Eosinophils % (A) 0 %; HCT 38.3 % (39.0-53.0); HGB 12.1 gm/dL (13.0-17.5); Lymphocytes # (A) 0.8 k/uL (1.0-4.8); Lymphocytes % (A) 5 %; MCH 31.5 pg (25.0-35.0); MCHC 31.7 g/dL (31.0-37.0); MCV 99.1 fL (80.0-100.0); Mean Platelet Volume 9.7; Monocytes # (A) 0.6 k/uL (0-1.0); Monocytes % (A) 4 %; Neutrophils # (A) 14.8 k/uL (1.3-7.7); Neutrophils % (A) 91 %; Platelet Count 146 k/uL (150-450); RBC 3.86 m/uL (4.30-5.90); RDW 12.4 % (11.5-15.5); WBC 16.3 k/uL (3.8-10.6)
[2022-12-09] MEDS: ASPIRIN 81 MG PO SCH ×2 (07:12→21:52)
--- NOTE | 2022-12-09 08:58 | P.CONS ---
History of Present Illness - Reason for Consult Consult date: 12/09/22 Requesting physician: Marin Oswald - History of Present Illness History of Presenting Illness: Patient is a is a very pleasant 82-year-old male with a past medical history of atrophic right kidney, hypertension, hyperlipidemia, and GERD. He is currently admitted under orthopedic surgery team status post left direct anterior total hip arthroplasty secondary to severe left hip osteoarthritis. We have been consulted for medical management throughout hospitalization. Patient seen and fully evaluated at the bedside this morning. Patient reports having postoperative urinary retention. RN reports patient bladder scan greater than 300. Patient denies having any postoperative nausea or vomiting. Currently reports burning sensation in left hip, otherwise reports controlled postoperative pain. Patient did report feeling dizzy/lightheaded upon initial time getting out of bed but currently denies feeling dizzy/lightheaded now that he is sitting in the recliner. Patient denies having any other complaints including headache, changes in vision or hearing, chest pain or palpitations, shortness of breath, nausea, vomiting, or experiencing any numbness/focal we akness in his extremities. Review of systems: Pertinent positives and negatives as discussed in HPI, a complete review of systems was performed and all other systems are negative. Physical exam: Vital signs reviewed and stable. General: Nontoxic, no distress and appears stated age. Derm: Skin warm and dry, normal coloration for ethnicity. Head: Atraumatic, normocephalic and symmetric. Eyes: EOMs intact, no lid lag, and anicteric sclera Mouth: no lip lesions, mucus membranes moist Cardiovascular: regular rate and rhythm with normal S1S2, systolic murmur, positive posterior tibial pulses bilaterally, and cap refill < 2 seconds. Lungs: Respirations even, regular, and unlabored on room air. Lungs CTA bilaterally, no rhonchi, no rales, no wheezing, and no accessory muscle usage. Abdominal: soft, nontender to palpation, no guarding, no appreciable organomegaly Ext: ROM intact. No gross muscle atrophy, no edema, no contractures Neuro: Speech clear, face symmetrical and CN II-XII grossly intact with no noted focal neuro deficits Psych: Alert and oriented to person, place, time, and situation. Appropriate and pleasant affect. Assessment and Plan of Care: Status post left total hip arthroplasty Left hip osteoarthritis Management per primary admitting orthopedic surgery team including DVT prophylaxis, pain management, 1/dressing care, weightbearing, and PT/OT. Patient currently on DVT prophylaxis with aspirin 81 mg twice daily. Postoperative urinary retention -Discussed with RN, continue bladder management and straight cath as needed for urinary retention greater than 400 mL. If patient requires greater than 2 straight catheterizations, will start on Flomax and insert Phan catheter and reattempt voiding trial tomorrow. Postoperative leukocytosis, reactive. This is an expected and normal finding. Will follow-up with repeat CBC tomorrow to monitor for improvement. Postoperative blood loss anemia. Preoperative hemoglobin 15.2 on 11/30/22 and postoperative hemoglobin of 12.1 this morning. This is an expected finding. We will continue to monitor with repeat morning CBC. No need for transfusion or further interventions at this time. No active bleeding noted. Hypertension -Monitor vital signs and continue daily medication regimen with amlodipine 10 mg nightly and metoprolol 50 mg daily. Hyperlipidemia Continue daily medication regimen with atorvastatin 10 mg nightly. Atrophic right kidney Patient reports history of atrophic right kidney nonfunctioning. He is currently having postoperative urinary retention. Order placed for morning BMP. We will follow-up on these results and continue to monitor closely. Data review: Morning labs reviewed. CBC showing leukocytosis with WBC count of 16.6, thrombocytopenia with platelet count of 146, and normocytic anemia with hemoglobin stable at 12.1. Vital signs reviewed and stable. Blood pressure 117/70, heart rate 67, respiratory rate 19, and SpO2 of 92% on room air with temp of 97.9F. Thank you for allowing us to participate in the care of this pleasant patient. Do not hesitate to contact us with questions. Someone can be reached from the [facility] hospitalist group all hours of the day at [phone] or via Nimaya. Patient was seen independently by Nurse Practitioner. This document was prepared using [employer] dictation software. Please allow for errors in land planner while rare they do occur. Maco Jane NP rendered care for this patient independently, reviewed the findings and plan as documented in the note above. I did not physically speak with or examine the patient on this date. Past Medical History Past Medical History: Atrial Fibrillation, GERD/Reflux, Hypertension Additional Past Medical History / Comment(s): Atrophic (R) kidney, D IVERTICULOSIS(PER COLONOSCOPY),GLAUCOMA,GASTRITIS, ANXIETY,leaky valve History of Any Multi-Drug Resistant Organisms: None Reported Past Surgical History: Cholecystectomy, Orthopedic Surgery Additional Past Surgical History / Comment(s): COLONOSCOPY, THUMB JOINT SX, CERVICAL SX W/ HJARDWARE Past Anesthesia/Blood Transfusion Reactions: Postoperative Nausea & Vomiting (PONV) Past Psychological History: Anxiety Additional Psychological History / Comment(s): PT IS INDEPENDANT. LIVES WITH AND 1 PET DOG IN SINGLE LEVEL HOME THAT HAS 3 STEPS. NO OUTSIDE SERVICES RECIEVED, NO MEDICAL EQUIPMENT. Smoking Status: Former smoker Past Alcohol Use History: Daily Additional Past Alcohol Use History / Comment(s): STARTED SMOKING AT AGE 18(1956) SMOKED 2 PPD, QUIT 1996 Past Drug Use History: None Reported - Past Family History Mother Family Medical History: Cancer Additional Family Medical History / Comment(s): BREAST CANCER Father Family Medical History: Cancer Additional Family Medical History / Comment(s): COLON CANCER Medications and Allergies Home Medications Medication Instructions Recorded Confirmed Type Escitalopram [Lexapro] 10 mg PO DAILY 12/12/13 12/01/22 History Latanoprost Ophth [Xalatan 0.005%] 1 drops BOTH EYES HS 11/16/16 12/01/22 Histor y Acetaminophen Tab [Tylenol Tab] 325 mg PO Q4H PRN 02/09/18 12/01/22 History Atorvastatin [Lipitor] 10 mg PO HS 02/09/18 12/01/22 History Cyanocobalamin (Vitamin B-12) 1,000 mcg PO DAILY 02/09/18 12/01/22 History [Vitamin B-12] Cholecalciferol [Vitamin D3 (25 25 mcg PO DAILY 12/01/22 12/01/22 History Mcg = 1000 Iu)] Donepezil HCl [Aricept] 10 mg PO HS 12/01/22 12/01/22 History Metoprolol Succinate (ER) [Toprol 50 mg PO DAILY 12/01/22 12/01/22 History Xl] amLODIPine [Norvasc] 10 mg PO HS 12/01/22 12/01/22 History Aspirin 81 mg PO BID 30 Days #60 tab 12/09/22 Rx Docusate [Colace] 100 mg PO BID #60 capsule 12/09/22 Rx Omeprazole 40 mg PO DAILY 30 Days #30 cap 12/09/22 Rx Allergies Allergy/AdvReac Type Severity Reaction Status Date / Time No Known Allergies Allergy Verified 12/08/22 13:54 Physical Exam Vitals: Vital Signs Temp Pulse Resp BP Pulse Ox 12/09/22 08:00 67 19 12/09/22 07:33 97.9 F 67 19 117/70 92 L 12/08/22 21:43 97.6 F 87 18 96/65 94 L 12/08/22 20:15 83 16 107/66 97 12/08/22 20:00 96 16 106/64 96 12/08/22 19:45 100 16 101/69 96 12/08/22 19:30 104 H 16 118/75 97 12/08/22 19:15 108 H 14 144/76 95 12/08/22 19:00 106 H 14 142/80 95 12/08/22 18:48 97 F L 110 H 13 147/84 97 12/08/22 14:57 47 L 16 126/76 95 12/08/22 14:12 97.3 F L 58 L 16 160/89 98 Intake and Output 12/08/22 12/09/22 12/09/22 22:59 06:59 14:59 Intake Total 1550 2560 Output Total 400 140 Balance 1150 2420 Intake: IV 1550 Intake, IV Titration 1600 Amount Lactated Ringers 1,000 ml 1500 @ 75 mls/hr IV .[id number] [facility] Rx#:[id number] ceFAZolin 2 gm In Sodium 100 Chloride 0.9% 50 ml @ 100 mls/hr IVPB Q8HR [facility] Rx# :[id number] Oral 960 Output: Drainage 140 Left Posterior Thigh 140 Estimated Blood Loss 400 Other: Weight 106.8 kg Results CBC & Chem 7: 12/09/22 05:59 Labs: Abnormal Lab Results - Last 24 Hours (Table) 12/09/22 Range/Units 05:59 WBC 16.3 H (3.8-10.6) k/uL RBC 3.86 L (4.30-5.90) m/uL Hgb 12.1 L (13.0-17.5) gm/dL Hct 38.3 L (39.0-53.0) % Plt Count 146 L (150-450) k/uL Neutrophils # 14.8 H (1.3-7.7) k/uL Lymphocytes # 0.8 L (1.0-4.8) k/uL
[2022-12-09] MEDS: METOPROLOL SUCCINATE (ER) 50 MG TAB.ER.24H PO SCH (10:09)
[2022-12-09] MEDS: ESCITALOPRAM 10 MG TAB PO SCH (10:10)
--- NOTE | 2022-12-09 12:36 | P.PN ---
Subjective Progress Note Date: 12/09/22 This patient is an 82-year-old male who is status-post left direct anterior total hip arthroplasty in 12/08/22. Today is post-operative day #1. The patient is examined bedside with Dr. Oswald. He states his pain is well-controlled at the left hip at this time. He is having issues urinating and has required a straight cath. Per nursing, physical therapy is recommending rehab at discharge. Patient has no additional complaints at this time. Vital signs stable. Objective - Vital Signs Vital signs: Vital Signs Temp 97.9 F 12/09/22 07:33 Pulse 67 12/09/22 08:00 Resp 19 12/09/22 08:00 BP 117/70 12/09/22 07:33 Pulse Ox 92 L 12/09/22 07:33 FiO2 Intake & Output 12/08/22 12/09/22 12/09/22 18:59 06:59 18:59 Intake Total 1950 2560 Output Total 400 140 300 Balance 1550 2420 -300 Weight 106.8 kg 106.8 kg Intake: IV 1950 Intake, IV Titration 1600 Amount Lactated Ringers 1,000 ml 1500 @ 75 mls/hr IV .[id number] [facility] Rx#:[id number] ceFAZolin 2 gm In Sodium 100 Chloride 0.9% 50 ml @ 100 mls/hr IVPB Q8HR [facility] Rx# :[id number] Oral 960 Output: Drainage 140 Left Posterior Thigh 140 Urine 300 Estimated Blood Loss 400 - Exam On examination, patient is sitting up in bed in no apparent distress. He is alert and oriented 3. On inspection of his left hip, there is a clean, dry, intact surgical dressing in place. No bleeding or drainage to the dressing. Mild swelling of the thigh, the thigh is soft and compressible. Motor and sensory function is intact in the left lower extremity. Femoral nerve function intact. Left lower extremity is warm and well perfused. Calf is soft and nontender to palpation. Hemovac drain is removed at bedside during examination. - Labs CBC & Chem 7: 12/09/22 05:59 Labs: Abnormal Lab Results - Last 24 Hours (Table) 12/09/22 Range/Units 05:59 WBC 16.3 H (3.8-10.6) k/uL RBC 3.86 L (4.30-5.90) m/uL Hgb 12.1 L (13.0-17.5) gm/dL Hct 38.3 L (39.0-53.0) % Plt Count 146 L (150-450) k/uL Neutrophils # 14.8 H (1.3-7.7) k/uL Lymphocytes # 0.8 L (1.0-4.8) k/uL Assessment and Plan Assessment: Status-post left direct anterior total hip arthroplasty in 12/08/22. Post-op day #1. Plan: - Weight bear to tolerance on operative extremity with a walker. - Keep surgical dressing in place. - Physical therapy for gait and balance training. - 2 doses of postoperative IV antibiotics. - Aspirin 81 mg BID for DVT prophylaxis. - Internal medicine for perioperative medical management. - Social work consult for discharge planning. Anticipate discharge to rehab.
[2022-12-09] MEDS: TAMSULOSIN 0.4 MG CAP.ER.24H PO SCH (18:31)
[2022-12-09] MEDS: LACTATED RINGERS 1,000 ML IV SCH ×2 (20:03→20:04)
--- NOTE | 2022-12-09 21:24 | XR ---
EXAMINATION TYPE: XR Hip LT and AP Pelvis DATE OF EXAM: 12/09/2022 CLINICAL HISTORY: pain TECHNIQUE: AP and frogleg views of the left hip are obtained. Single view of the pelvis is also subm itted. COMPARISON: None. FINDINGS: Total left hip prosthesis is noted. There is dislocation of the femoral component superiorl y. Acetabular component appears to be well seated. The overlying soft tissue appears unremarkable. IMPRESSION: 1. Dislocation of the prosthetic femoral head. No fracture seen.
[2022-12-09 21:52] LABS: Glucose,Whole Blood 191 mg/dL (70-110)
[2022-12-09] MEDS: SENNOSIDES-DOCUSATE SODIUM 1 EACH TAB PO SCH (21:52)
[2022-12-09] MEDS: ATORVASTATIN 10 MG TAB PO SCH (21:52)
[2022-12-09] MEDS: DONEPEZIL 10 MG TAB PO SCH (21:52)
[2022-12-09] MEDS: amLODIPine 10 MG TAB PO SCH (21:52)
[2022-12-09] MEDS: MELATONIN 3 MG TABLET PO SCH (21:52)
[2022-12-09] MEDS: ALPRAZolam 0.25 MG TAB PO SCH (21:52)
[2022-12-10] MEDS: LATANOPROST 0.005% OPHTH DROPS 2.5 ML BTL BOTH EYES SCH ×2 (01:24→21:09)
[2022-12-10] MEDS ORDERED: LACTATED RINGERS 1,000 ML IV ONE (06:22)
[2022-12-10] MEDS ORDERED: DEXAMETHASONE SOD PHOSPHATE 4 MG/ML 1 ML VIAL IV ONE (06:36)
[2022-12-10] MEDS ORDERED: ONDANSETRON 4 MG/2 ML VIAL IVP ONE (06:36)
[2022-12-10] MEDS ORDERED: LIDOCAINE 2% INJ 20 MG/ML (2 ML VIAL) ONE (06:56)
[2022-12-10] MEDS ORDERED: fentaNYL (PF) 50 MCG/ML 2 ML AMP ONE (06:56)
[2022-12-10] MEDS ORDERED: PROPOFOL 10 MG/ML 20 ML VIAL IV ONE (06:56)
[2022-12-10] MEDS ORDERED: SUCCINYLCHOLINE CHLORIDE 200 MG/10 ML VIAL IV ONE (06:56)
--- NOTE | 2022-12-10 07:44 | P.OP ---
Date of Procedure: 12/10/22 Preoperative Diagnosis: Acute postoperative left periprosthetic hip dislocation Postoperative Diagnosis: Same Procedure(s) Performed: Closed reduction left hip Anesthesia: RED Surgeon: Marin Oswald Exploration Geologist #1: Ana Garcia Pathology: none sent Condition: stable Disposition: PACU Indications for Procedure: The patient is very pleasant 82-year-old male who underwent a left direct anterior total hip replacement this past Tuesday. He was doing well perioperatively until last night when he got up without assistance or a walker and fell trying to go to the bathroom. He had immediate pain and deformity in his left leg. X-rays were taken and showed a left hip dislocation. The patient was made nothing by mouth. He was brought to the operative suite this morning for a closed versus open reduction of his hip. The patient understands the potential risks and complications of this particularly recurrent dislocation. Description of Procedure: Patient and then preoperative holding and the correct left leg was marked with my initials. I reviewed the consent form with the patient and all his questions were answered. The patient was brought back to the operating room. While on the gurney he was given a general anesthetic. Once he was under anesthetic a timeout was performed identifying the correct patient, operative extremity, and procedure. After the patient was under appropriate anesthesia a gentle reduction of the left hip was performed using a combination of longitudinal traction and rotation. There was an audible clunk as the hip reduced. The hip was brought through a gentle range of motion and found to be stable. Reduction x-ray showed a reduced hip with no evidence of fracture or implant loosening. A abduction pillow was placed. The patient was then awoken from his anesthetic to recovery in stable condition. Plan: The patient can weight-bear as tolerated in his left hip. He should use an abduction pillow while in bed and follow global hip precautions. Treatment as outlined previously otherwise.
[2022-12-10] MEDS: LACTATED RINGERS 1,000 ML IV SCH ×3 (08:17→13:25)
--- NOTE | 2022-12-10 08:36 | XR ---
Herber Schwarz EXAMINATION TYPE: XR Hip Limited LT DATE OF EXAM: 12/10/2022 CLINICAL HISTORY: Left hip dislocation. TECHNIQUE: Single AP portable view of left hip is obtained after reduction. COMPARISON: Pelvic and left hip x-ray from one day earlier. FINDINGS: Metallic hardware from total left hip arthroplasty is seen and now appears satisfactory in alignment and position after interval reduction. Vascular calcification and phleboliths medially are incidentally noted. IMPRESSION: As above.
[2022-12-10] MEDS: ESCITALOPRAM 10 MG TAB PO SCH (08:57)
[2022-12-10] MEDS: METOPROLOL SUCCINATE (ER) 50 MG TAB.ER.24H PO SCH (08:57)
[2022-12-10] MEDS: ASPIRIN 81 MG PO SCH ×2 (08:57→21:08)
[2022-12-10] MEDS: HYDROcodone/APAP 5-325MG 1 EACH TAB PO PRN (14:04)
--- NOTE | 2022-12-10 14:43 | P.PN ---
Subjective Progress Note Date: 12/10/22 History of Presenting Illness: Patient is a is a very pleasant 82-year-old male with a past medical history of atrophic right kidney, hypertension, hyperlipidemia, and GERD. He is currently admitted under orthopedic surgery team status post left direct anterior total hip arthroplasty secondary to severe left hip osteoarthritis. We have been consulted for medical management throughout hospitalization. Overnight on the evening of 12/09/22 patient reportedly went to restroom unas sisted and was reportedly found sitting between the toilet and shower with his back against the wall on his buttocks. Per documentation in chart, pt was alert and oriented 4 at this time denied hitting his head or having any other injuries. Reported that he was getting himself up from toilet when his leg gave out causing him to fall to the ground onto his buttocks. Primary admitting orthopedic surgeon was notified and patient was taken for x-ray which revealed dislocation of the prosthetic femoral head, negative for acute fracture or other injury at this time. Patient was taken back to the OR this morning where he underwent closed reduction of left hip secondary to acute postoperative left Prosthetic hip dislocation. Patient seen and fully evaluated at bedside this morning. Patient currently resting in bed with abductor pillow in place. Patient's at bedside. Patient currently denies having any pain or complaints at this time. Physical exam: Vital signs reviewed and stable. General: Nontoxic, no distress and appears stated age. Derm: Skin warm and dry, normal coloration for ethnicity. Head: Atraumatic with no noted obvious injuries/bruising, normocephalic and sy mmetric. Eyes: EOMs intact, no lid lag, and anicteric sclera Mouth: no lip lesions, mucus membranes moist Cardiovascular: regular rate and rhythm with normal S1S2, systolic murmur, positive posterior tibial pulses bilaterally, and cap refill < 2 seconds. Lungs: Respirations even, regular, and unlabored on room air. Lungs CTA bilaterally, no rhonchi, no rales, no wheezing, and no accessory muscle usage. Abdominal: soft, nontender to palpation, no guarding, no appreciable organomegaly Ext: Movement and sensation intact. No gross muscle atrophy, no edema, no contractures. Abductor pillow in place. Neuro: Speech clear, face symmetrical and CN II-XII grossly intact with no noted focal neuro deficits Psych: Alert and oriented to person, place, time, and situation. Appropriate and pleasant affect. Assessment and Plan of Care: Status post left total hip arthroplasty 12/08/22 Status post closed reduction of prosthetic left hip on 12/10/22 secondary to acute postoperative left prosthetic hip dislocation Left hip osteoarthritis Management per primary admitting orthopedic surgery team including DVT prophylaxis, pain management, wound/dressing care, weightbearing, advancement of activity and PT/OT. Abductor pillow to remain in place and patient to remain on bedrest pending further recommendations from primary admitting orthopedic surgery team. Patient currently on DVT prophylaxis with aspirin 81 mg twice daily. -Fall precautions remain in place. Postoperative urinary retention, -Patient was started on Flomax 0.4 mg daily and Phan catheter was placed. -Phan catheter to remain in place, may remove tomorrow and perform another voiding trial Postoperative leukocytosis, reactive. This is an expected and normal finding. Repeat CBC was drawn and currently pending results. Postoperative blood loss anemia. Preoperative hemoglobin 15.2 on 11/30/22 and postoperative hemoglobin of 12.1 on 12/09/22. This is an expected finding. Repeat CBC was completed this morning and currently pending results. Hypertension -Monitor vital signs and continue daily medication regimen with amlodipine 10 mg nightly and metoprolol 50 mg daily. Vital signs stable. Blood pressure 133/71 and heart rate 64. Hyperlipidemia Continue daily medication regimen with atorvastatin 10 mg nightly. Atrophic right kidney Patient reports history of atrophic right kidney nonfunctioning. He is currently having postoperative urinary retention. Order placed for morning BMP. We will follow-up on these results and continue to monitor closely. Data review: CBC and BMP were drawn and currently pending results. We will follow-up on these results once available. Vital signs reviewed and stable. Blood pressure 133/71, heart rate 64, respiratory rate 18, and SpO2 of 96% on room air with temp 97.7F. Imaging reviewed: X-ray completed overnight did reveal dislocation of the prosthetic femoral head however radiology reporting negative for acute fracture or any other injuries at this time. Patient underwent closed reduction of prosthetic left hip this morning and repeat imaging was completed radiology report metallic hardware from left total hip arthroplasty was seen and now appears satisfactory and alignment and position status post reduction. Thank you for allowing us to participate in the care of this pleasant patient. Do not hesitate to contact us with questions. Someone can be reached from the [facility] hospitalist group all hours of the day at [phone] or via perfect serve. Patient was seen independently by Nurse Practitioner. This document was prepared using [employer] dictation software. Please allow for errors in continuous process tanner rotary drum while rare they do occur. Maco Jane WAD BLANKING PRESS ADJUSTER rendered care for this patient independently, reviewed the findings and plan as documented in the note above. I did not physically speak with or examine the patient on this date. Objective - Vital Signs Vital signs: Vital Signs Temp 97.6 F 12/10/22 07:25 Pulse 60 12/10/22 07:55 Resp 16 12/10/22 07:55 BP 127/62 12/10/22 07:55 Pulse Ox 97 12/10/22 07:55 FiO2 Intake & Output 12/09/22 12/10/22 12/10/22 18:59 06:59 18:59 Intake Total 650 300 Output Total 300 801 0 Balance 350 -801 300 Intake: IV 300 Oral 650 Output: Urine 300 801 Estimated Blood Loss 0 Other: Voiding Method External Catheter Indwelling Catheter # Voids 1 - Labs CBC & Chem 7: 12/10/22 09:05 12/10/22 09:05 Labs: Abnormal Lab Results - Last 24 Hours (Table) 12/09/22 Range/Units 21:50 POC Glucose (mg/dL) 191 H (70-110) mg/dL
[2022-12-10 16:49] LABS: BUN/Creat Ratio 14.73 Ratio (12.00-20.00); Blood Urea Nitrogen 22.1 mg/dL (9.0-27.0); Calcium 8.5 mg/dL (8.7-10.3); Carbon Dioxide 25.7 mmol/L (21.6-31.8); Chloride 102 mmol/L (96-109); Glucose 149 mg/dL (70-110); Magnesium 1.6 mg/dL (1.5-2.4); Potassium 4.1 mmol/L (3.5-5.5); Sodium 138 mmol/L (135-145)
[2022-12-10 17:32] LABS: HCT 30.4 % (39.6-50.0); HGB 9.8 d/dL (12.0-15.0); MCH 32.1 pg (27.0-32.0); MCHC 32.2 d/dL (32.0-37.0); MCV 99.7 FL (80.0-97.0); Mean Platelet Volume 12.2 FL (9.5-12.2); NRBC Per 100 WBC 0 X 10*3/uL (0.00-0.01); Platelet Count 125 X 10*3/uL (140-440); RBC 3.05 X 10*6/uL (4.40-5.60); RDW 12.3 % (11.5-14.5); WBC 14.79 X 10*3/uL (4.50-10.00)
[2022-12-10] MEDS: TAMSULOSIN 0.4 MG CAP.ER.24H PO SCH (17:51)
[2022-12-10] MEDS: MAGNESIUM SULFATE-D5W PMX 1 GM in DEXTROSE/WATER 1 100ML.BAG IVPB SCH ×2 (21:07→23:37)
[2022-12-10] MEDS: SENNOSIDES-DOCUSATE SODIUM 1 EACH TAB PO SCH (21:08)
[2022-12-10] MEDS: DONEPEZIL 10 MG TAB PO SCH (21:08)
[2022-12-10] MEDS: amLODIPine 10 MG TAB PO SCH (21:08)
[2022-12-10] MEDS: ATORVASTATIN 10 MG TAB PO SCH (21:09)
[2022-12-10] MEDS: ALPRAZolam 0.25 MG TAB PO SCH (21:09)
[2022-12-10] MEDS: MELATONIN 3 MG TABLET PO SCH (21:09)
[2022-12-11] MEDS: LACTATED RINGERS 1,000 ML IV SCH ×2 (03:57→08:36)
[2022-12-11 06:12] LABS: HCT 26.4 % (39.0-53.0); MCH 33.1 pg (25.0-35.0); MCHC 33.2 g/dL (31.0-37.0); MCV 99.6 fL (80.0-100.0); Mean Platelet Volume 9.3; Platelet Count 110 k/uL (150-450); RBC 2.65 m/uL (4.30-5.90); RDW 12.3 % (11.5-15.5); WBC 9.6 k/uL (3.8-10.6)
[2022-12-11 06:13] LABS: HGB 8.8 gm/dL (13.0-17.5)
[2022-12-11 06:15] LABS: ALT 14 U/L (4-49); AST 46 U/L (17-59); African American GFR (CKD) 76 (>60 ml/min/1.73 sqM); Albumin 2.6 g/dL (3.5-5.0); Albumin/Globulin Ratio 1.2; Alkaline Phosphatase 59 U/L (38-126); Anion Gap 1 mmol/L; Blood Urea Nitrogen 18 mg/dL (9-20); Calcium 7.9 mg/dL (8.4-10.2); Carbon Dioxide 29 mmol/L (22-30); Chloride 104 mmol/L (98-107); Globulin 2.2 g/dL; Glucose 118 mg/dL (74-99); Magnesium 2.2 mg/dL (1.6-2.3); Non-African American GFR(CKD) 66 (>60 ml/min/1.73 sqM); Potassium 3.7 mmol/L (3.5-5.1); Sodium 134 mmol/L (137-145); Total Bilirubin 0.4 mg/dL (0.2-1.3); Total Protein 4.8 g/dL (6.3-8.2)
--- NOTE | 2022-12-11 08:20 | P.PN ---
Subjective Progress Note Date: 12/11/22 Patient is resting in his bed. He complains of pain in the left hip. He denies chest pain or shortness of breath. Objective - Vital Signs Vital signs: Vital Signs Temp 98.3 F 12/11/22 08:00 Pulse 61 12/11/22 08:00 Resp 18 12/11/22 08:00 BP 134/69 12/11/22 08:00 Pulse Ox 97 12/11/22 08:00 FiO2 Intake & Output 12/10/22 12/11/22 12/11/22 18:59 06:59 18:59 Intake Total 900 Output Total 925 300 600 Balance -25 -300 -600 Intake: IV 300 Intake, IV Titration 600 Amount Lactated Ringers 1,000 ml 600 @ 75 mls/hr IV .[id number] [id number] Rx#:[id number] Output: Urine 925 300 600 Estimated Blood Loss 0 Other: Voiding Method Indwelling Catheter # Voids 2 # Bowel Movements 1 - Exam On examination the patient is resting in his bed. The hip abduction pillow is not in place. The dressing over the left hip is intact with no drainage. Is mild swelling and diffuse ecchymosis over the hip. Leg lengths appear symmetric with no obvious deformity. His thigh is soft. Distally motor and sensory function are intact. - Labs CBC & Chem 7: 12/11/22 05:19 12/11/22 05:19 Labs: Abnormal Lab Results - Last 24 Hours (Table) 12/10/22 12/10/22 12/11/22 Range/Units 09:05 09:05 05:19 WBC 14.79 H (4.50-10.00) X 10*3/uL RBC 3.05 L 2.65 L (4.40-5.60) X 10*6/uL Hgb 9.8 L 8.8 L D (12.0-15.0) d/dL Hct 30.4 L 26.4 L (39.6-50.0) % MCV 99.7 H (80.0-97.0) FL MCH 32.1 H (27.0-32.0) pg Plt Count 125 L 110 L (140-440) X 10*3/uL Sodium (137-145) mmol/L Est GFR (CKD-EPI) 47 L (>=60) Glucose 149 H (70-110) mg/dL Calcium 8.5 L (8.7-10.3) mg/dL Total Protein (6.3-8.2) g/dL Albumin (3.5-5.0) g/dL 12/11/22 Range/Units 05:19 WBC (4.50-10.00) X 10*3/uL RBC (4.40-5.60) X 10*6/uL Hgb (12.0-15.0) d/dL Hct (39.6-50.0) % MCV (80.0-97.0) FL MCH (27.0-32.0) pg Plt Count (140-440) X 10*3/uL Sodium 134 L (137-145) mmol/L Est GFR (CKD-EPI) (>=60) Glucose 118 H (70-110) mg/dL Calcium 7.9 L (8.7-10.3) mg/dL Total Protein 4.8 L (6.3-8.2) g/dL Albumin 2.6 L (3.5-5.0) g/dL Assessment and Plan Assessment: Postoperative day #3 status post left direct anterior total hip replacement Postoperative day #1 status post left hip reduction in the operating room following dislocation in the hospital after a fall Plan: 1. Weightbearing as tolerated left lower extremity 2. Global hip precautions left hip with hip abduction pillow while in bed 3. Internal medicine for preoperative medical management 4. DVT prophylaxis with aspirin 5. Physical therapy for mobilization 6. Dispo: Patient will need discharge to rehab or SNF when medically stable and a bed is available.
[2022-12-11] MEDS: ASPIRIN 81 MG PO SCH ×2 (08:34→21:39)
[2022-12-11] MEDS: HYDROcodone/APAP 5-325MG 1 EACH TAB PO PRN ×2 (08:34→22:48)
[2022-12-11] MEDS: METOPROLOL SUCCINATE (ER) 50 MG TAB.ER.24H PO SCH (08:34)
[2022-12-11] MEDS: ESCITALOPRAM 10 MG TAB PO SCH (08:35)
--- NOTE | 2022-12-11 11:33 | P.PN ---
Subjective Progress Note Date: 12/11/22 Hospital Course: Patient is a is a very pleasant 82-year-old male with a past medical history of atrophic right kidney, hypertension, hyperlipidemia, and GERD. He was admitted under orthopedic surgery team status post left direct anterior total hip arthroplasty secondary to severe left hip osteoarthritis. We have been consulted for medical management throughout hospitalization. Overnight on the evening of 12/09/22 patient reportedly went to restroom unassisted and was reportedly found sitting between the toilet and shower with his back against the wall on his buttocks. Primary admitting orthopedic surgeon was notified and patient was taken for x-ray which revealed dislocation of the prosthetic femoral head, negative for acute fracture or other injury at this time. Patient was taken back to the OR this morning where he underwent closed reduction of left hip secondary to acute postoperative left Prosthetic hip dislocation. Subjective: Patient currently resting in bed with abductor pillow in place. Patient currently denies having any pain or complaints at this time. Physical exam: Gen: awake, alert HEENT: normocephalic, atraumatic, good hearing acuity, moist mucous membranes Resp: good air exchange, breathing comfortably with no accessory muscle use CVS: good distal perfusion x 4, GI: soft, NTTP, ND : no SPT, no CVAT, marr catheter not present MSK: no pitting edema, no clubbing Neuro: non-focal, moving all extremities Psych: cooperative, euthymic mood Assessment and Plan of Care: Status post left total hip arthroplasty 12/08/22 Status post closed reduction of prosthetic left hip on 12/10/22 secondary to acute postoperative left prosthetic hip dislocation Left hip osteoarthritis Management per primary admitting orthopedic surgery team including DVT prophylaxis, pain management, wound/dressing care, weightbearing, advancement of activity and PT/OT. Abductor pillow to remain in place and patient to remain on bedrest pending further recommendations from primary admitting orthopedic surgery team. Patient currently on DVT prophylaxis with aspirin 81 mg twice daily. -Fall precautions remain in place. Postoperative urinary retention, -Patient was started on Flomax 0.4 mg daily and Marr catheter was placed. -Marr catheter to remain in place, may remove tomorrow and perform another voiding trial Postoperative leukocytosis, reactive. This is an expected and normal finding. Repeat CBC was drawn and currently pending results. Postoperative blood loss anemia. -Add daily oral iron, continue to trend CBC daily Hypertension -Monitor vital signs and continue daily medication regimen with amlodipine 10 mg nightly and metoprolol 50 mg daily. Vital signs stable. Blood pressure 133/71 and heart rate 64. Hyperlipidemia Continue daily medication regimen with atorvastatin 10 mg nightly. Atrophic right kidney Patient reports history of atrophic right kidney nonfunctioning. He is currently having postoperative urinary retention. Order placed for morning BMP. We will follow-up on these results and continue to monitor closely. Data review: CBC and BMP were drawn: Hgb is 8.8 this morning, PLTs 110, Na 134 Vital signs reviewed and stable. Blood pressure 134/69, heart rate 61, SpO2 of 97% on room air. - Ortho note reviewed, global hip precautions, PT for mobilization Imaging reviewed: X-ray completed overnight did reveal dislocation of the prosthetic femoral head however radiology reporting negative for acute fracture or any other injuries at this time. Patient underwent closed reduction of prosthetic left hip this morning and repeat imaging was completed radiology report metallic hardware from left total hip arthroplasty was seen and now appears satisfactory and alignment and position status post reduction. Objective - Vital Signs Vital signs: Vital Signs Temp 98.3 F 12/11/22 08:00 Pulse 61 12/11/22 08:00 Resp 18 12/11/22 08:00 BP 134/69 12/11/22 08:00 Pulse Ox 97 12/11/22 08:00 FiO2 Intake & Output 12/10/22 12/11/22 12/11/22 18:59 06:59 18:59 Intake Total 900 Output Total 925 300 600 Balance -25 -300 -600 Intake: IV 300 Intake, IV Titration 600 Amount Lactated Ringers 1,000 ml 600 @ 75 mls/hr IV .[id number] REPLACED BY [facility] Rx#:[id number] Output: Urine 925 300 600 Estimated Blood Loss 0 Other: Voiding Method Indwelling Catheter # Voids 2 # Bowel Movements 1 - Labs CBC & Chem 7: 12/11/22 05:19 12/11/22 05:19 Labs: Abnormal Lab Results - Last 24 Hours (Table) 12/10/22 12/10/22 12/11/22 Range/Units 09:05 09:05 05:19 WBC 14.79 H (4.50-10.00) X 10*3/uL RBC 3.05 L 2.65 L (4.40-5.60) X 10*6/uL Hgb 9.8 L 8.8 L D (12.0-15.0) d/dL Hct 30.4 L 26.4 L (39.6-50.0) % MCV 99.7 H (80.0-97.0) FL MCH 32.1 H (27.0-32.0) pg Plt Count 125 L 110 L (140-440) X 10*3/uL Sodium (137-145) mmol/L Est GFR (CKD-EPI) 47 L (>=60) Glucose 149 H (70-110) mg/dL Calcium 8.5 L (8.7-10.3) mg/dL Total Protein (6.3-8.2) g/dL Albumin (3.5-5.0) g/dL 12/11/22 Range/Units 05:19 WBC (4.50-10.00) X 10*3/uL RBC (4.40-5.60) X 10*6/uL Hgb (12.0-15.0) d/dL Hct (39.6-50.0) % MCV (80.0-97.0) FL MCH (27.0-32.0) pg Plt Count (140-440) X 10*3/uL Sodium 134 L (137-145) mmol/L Est GFR (CKD-EPI) (>=60) Glucose 118 H (70-110) mg/dL Calcium 7.9 L (8.7-10.3) mg/dL Total Protein 4.8 L (6.3-8.2) g/dL Albumin 2.6 L (3.5-5.0) g/dL
[2022-12-11] MEDS: FERROUS SULFATE 325 MG TAB PO SCH (12:37)
[2022-12-11] MEDS: TAMSULOSIN 0.4 MG CAP.ER.24H PO SCH (17:18)
[2022-12-11] MEDS: SENNOSIDES-DOCUSATE SODIUM 1 EACH TAB PO SCH (21:39)
[2022-12-11] MEDS: amLODIPine 10 MG TAB PO SCH (21:39)
[2022-12-11] MEDS: ATORVASTATIN 10 MG TAB PO SCH (21:39)
[2022-12-11] MEDS: DONEPEZIL 10 MG TAB PO SCH (21:39)
[2022-12-11] MEDS: MELATONIN 3 MG TABLET PO SCH (21:39)
[2022-12-11] MEDS: ALPRAZolam 0.25 MG TAB PO SCH (21:39)
[2022-12-12] MEDS: LATANOPROST 0.005% OPHTH DROPS 2.5 ML BTL BOTH EYES SCH ×2 (03:47→21:11)
[2022-12-12] MEDS: LACTATED RINGERS 1,000 ML IV SCH (03:48)
[2022-12-12 05:06] LABS: African American GFR (CKD) 73 (>60 ml/min/1.73 sqM); Anion Gap 4 mmol/L; Blood Urea Nitrogen 12 mg/dL (9-20); Calcium 7.8 mg/dL (8.4-10.2); Carbon Dioxide 29 mmol/L (22-30); Chloride 104 mmol/L (98-107); Glucose 115 mg/dL (74-99); Magnesium 1.9 mg/dL (1.6-2.3); Non-African American GFR(CKD) 63 (>60 ml/min/1.73 sqM); Potassium 3.6 mmol/L (3.5-5.1); Sodium 137 mmol/L (137-145)
[2022-12-12] MEDS: ASPIRIN 81 MG PO SCH ×2 (08:41→21:10)
[2022-12-12] MEDS: METOPROLOL SUCCINATE (ER) 50 MG TAB.ER.24H PO SCH (08:41)
[2022-12-12] MEDS: HYDROcodone/APAP 5-325MG 1 EACH TAB PO PRN ×2 (08:41→21:46)
[2022-12-12] MEDS: ESCITALOPRAM 10 MG TAB PO SCH (08:42)
[2022-12-12] MEDS: FERROUS SULFATE 325 MG TAB PO SCH (08:45)
--- NOTE | 2022-12-12 08:57 | P.PN ---
Subjective Progress Note Date: 12/12/22 Patient is doing better this morning. The pain in his left hip is controlled. He was up yesterday walking on his left leg and was in the chair. He has no complaints this morning. He denies chest pain or shortness of breath. Objective - Vital Signs Vital signs: Vital Signs Temp 97.6 F 12/12/22 07:48 Pulse 63 12/12/22 07:48 Resp 17 12/12/22 07:48 BP 117/74 12/12/22 07:48 Pulse Ox 94 L 12/12/22 07:48 FiO2 Intake & Output 12/11/22 12/12/22 12/12/22 18:59 06:59 18:59 Intake Total 600 Output Total 600 Balance 0 Intake: Intake, IV Titration 600 Amount Lactated Ringers 1,000 ml 600 @ 75 mls/hr IV .[id number] Rx#:[id number] Output: Urine 600 Other: # Voids 3 - Exam Patient is resting comfortably in bed. He is alert and able to enter questions. On inspection the left hip there is a clean-appearing dressing over the anterior aspect of the hip with no drainage or strike through. There is moderate swelling and resolving ecchymosis. Femoral nerve function is intact. He is able to actively plantarflex and dorsiflex his ankle and his toes. - Labs CBC & Chem 7: 12/11/22 05:19 12/12/22 04:40 Labs: Abnormal Lab Results - Last 24 Hours (Table) 12/12/22 Range/Units 04:40 Glucose 115 H (74-99) mg/dL Calcium 7.8 L (8.4-10.2) mg/dL Assessment and Plan Assessment: Postoperative day #4 status post left direct anterior total hip replacement Operative day #2 status post closed reduction left hip dislocation following ground level fall Plan: Continue treatment as outlined yesterday including hip precautions and a hip abduction pillow while in bed. Continue mobilization with assistance. DVT prophylaxis with aspirin. Appreciate IM assistance for perioperative medical management. The patient will likely discharge to rehab tomorrow.
[2022-12-12 09:31] LABS: Basophils # (A) 0.05 X 10*3/uL (0.00-0.10); Basophils % (A) 0.5 %; Eosinophils % (A) 3.9 %; HCT 25.5 % (39.6-50.0); HGB 8.3 d/dL (12.0-15.0); Lymphocytes # (A) 1.06 X 10*3/uL (0.90-5.00); Lymphocytes % (A) 10.3 %; MCH 32.4 pg (27.0-32.0); MCHC 32.5 d/dL (32.0-37.0); MCV 99.6 FL (80.0-97.0); Mean Platelet Volume 11.6 FL (9.5-12.2); Monocytes # (A) 1.04 X 10*3/uL (0.20-1.00); Monocytes % (A) 10.1 %; NRBC Per 100 WBC 0 X 10*3/uL (0.00-0.01); Neutrophils # (A) 7.58 X 10*3/uL (1.80-7.70); Neutrophils % (A) 73.7 %; Platelet Count 131 X 10*3/uL (140-440); RBC 2.56 X 10*6/uL (4.40-5.60); RDW 12.3 % (11.5-14.5); WBC 10.28 X 10*3/uL (4.50-10.00)
--- NOTE | 2022-12-12 13:23 | P.PN ---
Subjective Progress Note Date: 12/12/22 Hospital Course: Patient is a is a very pleasant 82-year-old male with a past medical history of atrophic right kidney, hypertension, hyperlipidemia, and GERD. He was admitted under orthopedic surgery team status post left direct anterior total hip arthroplasty secondary to severe left hip osteoarthritis. We have been consulted for medical management throughout hospitalization. Overnight on the evening of 12/09/22 patient reportedly went to restroom unassisted and was reportedly found sitting between the toilet and shower with his back against the wall on his buttocks. Primary admitting orthopedic surgeon was notified and patient was taken for x-ray which revealed dislocation of the prosthetic femoral head, negative for acute fracture or other injury at this time. Patient was taken back to the OR this morning where he underwent closed reduction of left hip secondary to acute postoperative left Prosthetic hip dislocation. Subjective: Patient currently resting in bed with abductor pillow in place. Patient currently denies having any pain or complaints at this time. Physical exam: Gen: awake, alert HEENT: normocephalic, atraumatic, good hearing acuity, moist mucous membranes Resp: good air exchange, breathing comfortably with no accessory muscle use CVS: good distal perfusion x 4, GI: soft, NTTP, ND : no SPT, no CVAT, marr catheter not present MSK: no pitting edema, no clubbing Neuro: non-focal, moving all extremities Psych: cooperative, euthymic mood Assessment and Plan of Care: Status post left total hip arthroplasty 12/08/22 Status post closed reduction of prosthetic left hip on 12/10/22 secondary to acute postoperative left prosthetic hip dislocation Left hip osteoarthritis Management per primary admitting orthopedic surgery team including DVT prophylaxis, pain management, wound/dressing care, weightbearing, advancement of activity and PT/OT. Abductor pillow to remain in place and patient to remain on bedrest pending further recommendations from primary admitting orthopedic surgery team. Patient currently on DVT prophylaxis with aspirin 81 mg twice daily. -Fall precautions remain in place. Postoperative urinary retention, -Patient was started on Flomax 0.4 mg daily and Marr catheter was placed. -Marr catheter to remain in place, may remove tomorrow and perform another voiding trial Postoperative leukocytosis, reactive. This is an expected and normal finding. Repeat CBC was drawn and currently pending results. Postoperative blood loss anemia. -Add daily oral iron, continue to trend CBC daily Hypertension -Monitor vital signs and continue daily medication regimen with amlodipine 10 mg nightly and metoprolol 50 mg daily. Vital signs stable. Blood pressure 133/71 and heart rate 64. Hyperlipidemia Continue daily medication regimen with atorvastatin 10 mg nightly. Atrophic right kidney Patient reports history of atrophic right kidney nonfunctioning. He is currently having postoperative urinary retention. Order placed for morning BMP. We will follow-up on these results and continue to monitor closely. Data review: CBC and BMP were drawn: Hgb is 8.3 this morning, PLTs 115, Na 137 Vital signs reviewed and stable. Blood pressure 117/74, heart rate 63, SpO2 of 94% on room air. - Ortho note reviewed, global hip precautions, PT for mobilization Imaging reviewed: X-ray completed overnight did reveal dislocation of the prosthetic femoral head however radiology reporting negative for acute fracture or any other injuries at this time. Patient underwent closed reduction of prosthetic left hip this morning and repeat imaging was completed radiology report metallic hardware from left total hip arthroplasty was seen and now appears satisfactory and alignment and position status post reduction. Objective - Vital Signs Vital signs: Vital Signs Temp 97.6 F 12/12/22 07:48 Pulse 63 12/12/22 07:48 Resp 17 12/12/22 07:48 BP 117/74 12/12/22 07:48 Pulse Ox 94 L 12/12/22 07:48 FiO2 Intake & Output 12/11/22 12/12/22 12/12/22 18:59 06:59 18:59 Intake Total 600 Output Total 600 Balance 0 Intake: Intake, IV Titration 600 Amount Lactated Ringers 1,000 ml 600 @ 75 mls/hr IV .[id number] [id number] Rx#:[id number] Output: Urine 600 Other: # Voids 3 - Labs CBC & Chem 7: 12/12/22 04:40 12/12/22 04:40 Labs: Abnormal Lab Results - Last 24 Hours (Table) 12/12/22 12/12/22 Range/Units 04:40 04:40 WBC 10.28 H (4.50-10.00) X 10*3/uL RBC 2.56 L (4.40-5.60) X 10*6/uL Hgb 8.3 L (12.0-15.0) d/dL Hct 25.5 L (39.6-50.0) % MCV 99.6 H (80.0-97.0) FL MCH 32.4 H (27.0-32.0) pg Plt Count 131 L (140-440) X 10*3/uL Monocytes # 1.04 H (0.20-1.00) X 10*3/uL Eosinophils # 0.40 H (0.04-0.35) X 10*3/uL Glucose 115 H (74-99) mg/dL Calcium 7.8 L (8.4-10.2) mg/dL
[2022-12-12] MEDS: TAMSULOSIN 0.4 MG CAP.ER.24H PO SCH (16:16)
[2022-12-12] MEDS: DONEPEZIL 10 MG TAB PO SCH (21:10)
[2022-12-12] MEDS: ATORVASTATIN 10 MG TAB PO SCH (21:10)
[2022-12-12] MEDS: MELATONIN 3 MG TABLET PO SCH (21:10)
[2022-12-12] MEDS: ALPRAZolam 0.25 MG TAB PO SCH (21:10)
[2022-12-12] MEDS: SENNOSIDES-DOCUSATE SODIUM 1 EACH TAB PO SCH (21:10)
[2022-12-12] MEDS: amLODIPine 10 MG TAB PO SCH (21:10)
[2022-12-13] MEDS: HYDROcodone/APAP 5-325MG 1 EACH TAB PO PRN (07:58)
[2022-12-13] MEDS: FERROUS SULFATE 325 MG TAB PO SCH (07:59)
[2022-12-13] MEDS: ESCITALOPRAM 10 MG TAB PO SCH (07:59)
[2022-12-13] MEDS: METOPROLOL SUCCINATE (ER) 50 MG TAB.ER.24H PO SCH (07:59)
[2022-12-13] MEDS: ASPIRIN 81 MG PO SCH (07:59)
[2022-12-13 08:06] VITALS: BP 144/83; PULSE 64; RESP 20; TEMP 97.9
[2022-12-13 08:52] LABS: Basophils # (A) 0.04 X 10*3/uL (0.00-0.10); Basophils % (A) 0.5 %; Eosinophils # (A) 0.51 X 10*3/uL (0.04-0.35); Eosinophils % (A) 5.9 %; HCT 26.5 % (39.6-50.0); HGB 8.2 d/dL (12.0-15.0); Lymphocytes # (A) 1.09 X 10*3/uL (0.90-5.00); Lymphocytes % (A) 12.5 %; MCH 30.7 pg (27.0-32.0); MCHC 30.9 d/dL (32.0-37.0); MCV 99.3 FL (80.0-97.0); Mean Platelet Volume 11.5 FL (9.5-12.2); Monocytes # (A) 1.04 X 10*3/uL (0.20-1.00); NRBC Per 100 WBC 0 X 10*3/uL (0.00-0.01); Neutrophils # (A) 5.85 X 10*3/uL (1.80-7.70); Neutrophils % (A) 67.1 %; Platelet Count 147 X 10*3/uL (140-440); RBC 2.67 X 10*6/uL (4.40-5.60); RDW 12.1 % (11.5-14.5)
--- NOTE | 2022-12-13 09:21 | P.DS ---
Providers Date of admission: 12/10/22 10:13 Expected date of discharge: 12/13/22 Attending physician: Marin Oswald Consults: 12/08/22 18:57 Consult Physician Routine Consulting Provider: Herlinda Haq Consult Reason/Comments: medical management Do you want consulting provider notified?: Yes Primary care physician: PARKER Shook Hospital Course: This is an 84-year-old female who has been followed in our office by Dr. Oswald for continued complaints of left hip pain due to left hip osteoarthritis. Treatment options were discussed, and patient elected to undergo a left direct anterior total hip arthroplasty. Patient was seen pre-operatively by Avril Julien NP and cleared for surgery. Patient underwent a left direct anterior total hip arthroplasty on 12/08/[address] Oswald. The procedure was performed without complication or sequelae. The patient walked to the bathroom unassisted the evening of POD #1 from left direct anterior total hip arthroplasty and fell. He sustained a left hip dislocation, and subsequently underwent a closed reduction left hip on 12/10/22. The patient is doing fairly well postoperatively. Vital signs and labs are stable on postoperative day #5. Patient was examined bedside this morning with Dr. Oswald. Patient states he is overall doing well and his pain is well-controlled. He notes mild muscle cramps in the left thigh. No additional complaints. On examination, the patient is sitting up in bed in no apparent distress. She is alert and orientated 3. On inspection of the left hip, there is a clean, dry, intact surgical dressing in place. Motor and sensory function is intact of the left lower extremity. Femoral nerve function intact. The dorsalis pedis pulse is easily palpable, the left lower extremity is warm and well perfused with brisk capillary refill. Calf is soft and non-tender to palpation. Abduction pillow in place. Patient is discharged to rehab today in good condition, pending medical clearance. Patient will follow-up with Dr. Oswald in the office in 2 weeks at [facility]. Please see med rec for accurate list of discharge medication. Plan - Discharge Summary Discharge Rx Participant: Yes New Discharge Prescriptions: New Aspirin 81 mg PO BID 30 Days #60 tab Omeprazole 40 mg PO DAILY 30 Days #30 cap Doxycycline Monohydrate 100 mg PO BID 7 Days #14 cap Docusate [Colace] 100 mg PO BID #60 capsule HYDROcodone/APAP 5-325MG [Refugio 5-325] 1 - 2 tab PO Q6HR PRN 7 Days #32 tab PRN Reason: Pain No Action Escitalopram [Lexapro] 10 mg PO DAILY Latanoprost Ophth [Xalatan 0.005%] 1 drops BOTH EYES HS Cyanocobalamin (Vitamin B-12) [Vitamin B-12] 1,000 mcg PO DAILY Acetaminophen Tab [Tylenol Tab] 325 mg PO Q4H PRN PRN Reason: Pain Atorvastatin [Lipitor] 10 mg PO HS Metoprolol Succinate (ER) [Toprol Xl] 50 mg PO DAILY amLODIPine [Norvasc] 10 mg PO HS Donepezil HCl [Aricept] 10 mg PO HS Cholecalciferol [Vitamin D3 (25 Mcg = 1000 Iu)] 25 mcg PO DAILY Discharge Medication List Escitalopram [Lexapro] 10 mg PO DAILY 12/12/13 [History] Latanoprost Ophth [Xalatan 0.005%] 1 drops BOTH EYES HS 11/16/16 [History] Acetaminophen Tab [Tylenol Tab] 325 mg PO Q4H PRN 02/09/18 [History] Atorvastatin [Lipitor] 10 mg PO HS 02/09/18 [History] Cyanocobalamin (Vitamin B-12) [Vitamin B-12] 1,000 mcg PO DAILY 02/09/18 [History] Cholecalciferol [Vitamin D3 (25 Mcg = 1000 Iu)] 25 mcg PO DAILY 12/01/22 [History] Donepezil HCl [Aricept] 10 mg PO HS 12/01/22 [History] Metoprolol Succinate (ER) [Toprol Xl] 50 mg PO DAILY 12/01/22 [History] amLODIPine [Norvasc] 10 mg PO HS 12/01/22 [History] Aspirin 81 mg PO BID 30 Days #60 tab 12/09/22 [Rx] Docusate [Colace] 100 mg PO BID #60 capsule 12/09/22 [Rx] Omeprazole 40 mg PO DAILY 30 Days #30 cap 12/09/22 [Rx] Doxycycline Monohydrate 100 mg PO BID 7 Days #14 cap 12/10/22 [Rx] HYDROcodone/APAP 5-325MG [Refugio 5-325] 1 - 2 tab PO Q6HR PRN 7 Days #32 tab 12/10/22 [Rx] Follow up Appointment(s)/Referral(s): Marin Oswald MD [Medical Doctor] - 2 Weeks Activity/Diet/Wound Care/Special Instructions: Weight bear to tolerance on operative extremity with a walker. Up with assistance only. Keep abduction pillow on while in bed. Keep operative dressing in place until follow-up appointment in the office. Call the office if dressing becomes saturated or falls off. May shower over dressing. Take pain medication as prescribed. Take aspirin 81mg twice a day x 4 weeks for blood clot prevention. Follow-up in the office in two weeks at [facility]. Call the office with any questions or concerns, Discharge Disposition: TRANSFER TO SNF/ECF
--- NOTE | 2022-12-13 10:07 | P.PN ---
Subjective Progress Note Date: 12/13/22 Hospital Course: Patient is a is a very pleasant 82-year-old male with a past medical history of atrophic right kidney, hypertension, hyperlipidemia, and GERD. He was admitted under orthopedic surgery team status post left direct anterior total hip arthroplasty secondary to severe left hip osteoarthritis. We have been consulted for medical management throughout hospitalization. Overnight on the evening of 12/09/22 patient reportedly went to restroom unassisted and was reportedly found sitting between the toilet and shower with his back against the wall on his buttocks. Primary admitting orthopedic surgeon was notified and patient was taken for x-ray which revealed dislocation of the prosthetic femoral head, negative for acute fracture or other injury at this time. Patient was taken back to the OR this morning where he underwent closed reduction of left hip secondary to acute postoperative left Prosthetic hip dislocation. Subjective: Patient currently resting in bed with abductor pillow in place. Patient currently denies having any pain or complaints at this time. Medically cleared for discharge Physical exam: Gen: awake, alert HEENT: normocephalic, atraumatic, good hearing acuity, moist mucous membranes Resp: good air exchange, breathing comfortably with no accessory muscle use CVS: good distal perfusion x 4, GI: soft, NTTP, ND : no SPT, no CVAT, marr catheter not present MSK: no pitting edema, no clubbing Neuro: non-focal, moving all extremities Psych: cooperative, euthymic mood Assessment and Plan of Care: Status post left total hip arthroplasty 12/08/22 Status post closed reduction of prosthetic left hip on 12/10/22 secondary to acute postoperative left prosthetic hip dislocation Left hip osteoarthritis Management per primary admitting orthopedic surgery team including DVT prophylaxis, pain management, wound/dressing care, weightbearing, advancement of activity and PT/OT. Abductor pillow to remain in place and patient to remain on bedrest pending further recommendations from primary admitting orthopedic surgery team. Patient currently on DVT prophylaxis with aspirin 81 mg twice daily. -Fall precautions remain in place. Postoperative urinary retention, -Patient was started on Flomax 0.4 mg daily and Marr catheter was placed. -Marr catheter to remain in place, may remove tomorrow and perform another voiding trial Postoperative leukocytosis, reactive. This is an expected and normal finding. Repeat CBC was drawn and currently pending results. Postoperative blood loss anemia. -Add daily oral iron, continue to trend CBC daily Hypertension -Monitor vital signs and continue daily medication regimen with amlodipine 10 mg nightly and metoprolol 50 mg daily. Vital signs stable. Blood pressure 133/71 and heart rate 64. Hyperlipidemia Continue daily medication regimen with atorvastatin 10 mg nightly. Atrophic right kidney Patient reports history of atrophic right kidney nonfunctioning. He is currently having postoperative urinary retention. Order placed for morning BMP. We will follow-up on these results and continue to monitor closely. Objective - Vital Signs Vital signs: Vital Signs Temp 97.9 F 12/13/22 08:00 Pulse 64 12/13/22 08:00 Resp 20 12/13/22 08:00 BP 144/83 12/13/22 08:00 Pulse Ox 93 L 12/13/22 08:00 FiO2 Intake & Output 12/12/22 12/13/22 12/13/22 18:59 06:59 18:59 Intake Total 500 240 Output Total 300 Balance -300 500 240 Intake: Oral 500 240 Output: Urine 300 Other: Voiding Method Toilet Urinal # Voids 2 - Labs CBC & Chem 7: 12/13/22 05:07 12/12/22 04:40 Labs: Abnormal Lab Results - Last 24 Hours (Table) 12/13/22 Range/Units 05:07 RBC 2.67 L (4.40-5.60) X 10*6/uL Hgb 8.2 L (12.0-15.0) d/dL Hct 26.5 L (39.6-50.0) % MCV 99.3 H (80.0-97.0) FL MCHC 30.9 L (32.0-37.0) d/dL Monocytes # 1.04 H (0.20-1.00) X 10*3/uL Eosinophils # 0.51 H (0.04-0.35) X 10*3/uL
--- NOTE | 2022-12-13 13:13 | CDI ---
Documentation Clarification Form Date: 12/13/2022 From: Vale Vann Phone: [phone] Admit Date: 12/10/2022 10:13:00 AM Patient Name: Herber Schwarz Visit Number: [id number] ATTENTION: The Clinical Documentation Specialists (CDI) and [facility] Coding Staff appreciate your assistance in clarifying documentation. Please respond to the clarification below the line at the bottom and electronically sign. The CDI & [facility] Coding staff will review the response and follow-up if needed. Please note: Queries are made part of the Legal Health Record. If you have any questions, please contact the author of this message via ITS. Dr. Marin Oswald Postoperative urinary retention is documented in the IM consult and subsequent progress notes. Additional clarification is requested regarding the relationship, if any, that exists between the diagnosis and the procedure. Patients Admitting Diagnosis: Severe L hip OA Post-Operative Diagnosis: Severe L hip OA Procedure performed 12/08: Left direct anterior GUICHO History/Risk Factors: Pt has a history of an atrophic R kidney s/p nephrectomy. Clinical Indicators: Per the record on 12/09, RN reported a PVR >300ml Treatment: Pt had a Phan catheter inserted 12/09 and removed 12/10. Pt started on Flomax 12/09 What relationship, if any, exists between the diagnosis of postoperative urinary retention and the procedure: [ ] is a complication of surgical procedure [ ] is an expected outcome of the surgical procedure [ ] is related to patients co-morbid condition(s) of age and previous nephrectomy & not a complication of the procedure [ ] has been ruled out [ ] Other please specify ____ [ ] Unable to determine (Template Last Revised: August 2020) MTDD
== END 2022-12-13 13:39 | DRG 470 ==
LOC: OR 13:27 → 4SSUR 18:48 → OR 12-09 14:19 → OBSVTOIN 12-10 10:13
PROVIDERS: ADMIT Orthopaedic Surgery; ATTEND Orthopaedic Surgery
PROC: 0SRB029 Replacement of Left Hip Joint with Metal on Polyethylene Synthetic Substitute, Cemented, Open Approach (ICD-10-PCS; principal; 2022-12-08 15:25)
PROC: 0SWBXJZ Revision of Synthetic Substitute in Left Hip Joint, External Approach (ICD-10-PCS; 2022-12-10)
DX: M16.12 Unilateral primary osteoarthritis, left hip (principal); T84.021A Dislocation of internal left hip prosthesis, initial encounter; D62 Acute posthemorrhagic anemia; N26.1 Atrophy of kidney (terminal); D72.829 Elevated white blood cell count, unspecified; M85.652 Other cyst of bone, left thigh; W18.30XA Fall on same level, unspecified, initial encounter; Y92.231 Patient bathroom in hospital as the place of occurrence of the external cause; K21.9 Gastro-esophageal reflux disease without esophagitis; I10 Essential (primary) hypertension; E78.5 Hyperlipidemia, unspecified; I48.91 Unspecified atrial fibrillation; Z79.82 Long term (current) use of aspirin; Z79.899 Other long term (current) drug therapy; Z87.891 Personal history of nicotine dependence; Z90.5 Acquired absence of kidney; N40.1 Benign prostatic hyperplasia with lower urinary tract symptoms; R33.8 Other retention of urine; T41.205A Adverse effect of unspecified general anesthetics, initial encounter
CPT/HCPCS: 64447; 73501; 73502; 80048; 80053; 83735; 85025; 85027; 86850; 86900; 86901

== ENCOUNTER → 2022-12-30 | Outpatient (CLI) | payer MEDICARE ==
--- NOTE | 2022-12-30 19:44 | CT ---
EXAMINATION TYPE: CT hip LT wo con DATE OF EXAM: 12/30/2022 COMPARISON: Left hip 12/10/2022, 02/07/2017 CT abdomen and pelvis HISTORY: pain. prior sx CT DLP: 1223 mGycm Automated exposure control for dose reduction was used. Contrast: None Technique: Axial images 3 mm thick sections. Reconstructed images in the coronal and sagittal planes. FINDINGS: Left hip prosthesis appears intact. Acetabular component is present. Femoral prosthesis articulates w ith the acetabular component. No acute fractures are identified. Beam hardening artifact from the pro sthesis. Lower pelvis within the field of view appears unremarkable. Vascular calcification is noted. IMPRESSION: 1. NORMAL LEFT HIP PROSTHESIS.
== END | disposition home or self-care (01) ==
LOC: RADCTMAIN 14:46
PROVIDERS: ATTEND Orthopaedic Surgery
DX: M25.552 Pain in left hip (principal); Z47.1 Aftercare following joint replacement surgery; Z96.642 Presence of left artificial hip joint

== ENCOUNTER → 2023-02-03 | Outpatient (CLI) | payer MEDICARE ==
[2023-02-03 19:51] LABS: C Reactive Protein 0.4 mg/dL (0.00-0.80)
== END | disposition home or self-care (01) ==
LOC: LABWHC1 14:26
PROVIDERS: ATTEND Orthopaedic Surgery
DX: Z47.1 Aftercare following joint replacement surgery (principal); M25.552 Pain in left hip; N28.9 Disorder of kidney and ureter, unspecified; Z96.642 Presence of left artificial hip joint
CPT/HCPCS: 36415; 84075; 85652; 86140

== ENCOUNTER 2023-03-25 10:04 | Day surgery (SDC) | payer MEDICARE ==
[2023-03-25 11:00] VITALS: TEMP 97.6
[2023-03-25 11:37] VITALS: BP 141/80; PULSE 65; RESP 16
--- NOTE | 2023-03-25 15:08 | US ---
EXAMINATION TYPE: US guided aspiration major joint, left hip DATE OF EXAM: 03/25/2023 History: 82-year-old male M61.9,Z96.642 PRESENCE OF LEFT ARTIFICIAL HIP JOIN, persistent pain and dif ficulty walking Procedure: 1. Ultrasound of the left hip. 2. Aspiration with ultrasound guidance. Technique: The procedure, risks, and alternatives, were discussed with the patient, who requested that we nguyễn gan. The consent form was signed, and teach-back occurred. The site/side of the procedure was marked wi th a line with participation by the patient. The accompanying paperwork was verified for consistency. A directed history and physical exam was performed prior to the procedure. Medication reconciliation was performed by ancillary personnel. A critical pause was performed with assisting personnel just p rior to the procedure and the patient's identity was confirmed using 2 identifiers. Imaging guidance was utilized to select the precise skin entry point just prior to the procedure. The anterior left hip was prepped and draped in the usual sterile fashion and local 1% lidocaine anes thesia was instilled. Under ultrasound guidance, an 18 gauge spinal needle was introduced. However, w e encountered solid bone. What appeared to represent large pocket of fluid with extensive shadowing b one. We probed the area and eventually the needle passed deeper and we were able to aspirate 2 mL of bloody fluid. The needle tip was entirely obscured by the extensive shadowing bone. The needle was re moved. The patient tolerated the procedure well. There were no immediate complications. After the procedure, the patient's condition was unchanged. Es timated blood loss was minimal. The patient was instructed on routine postprocedure precautions, incl uding monitoring for signs of infection and avoid water on the area for one day and avoid soaking the area for the next 2 days. 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 There is extens rossana shadowing bone which had to be traversed in order to access the fluid. Submitted for laboratory a nalysis.
[2023-03-26 13:50] LABS: Appearance,BF Bloody (Clear)
== END 2023-03-25 11:45 | disposition home or self-care (01) ==
LOC: RADPROMAIN 10:04
PROVIDERS: ATTEND Orthopaedic Surgery
DX: M61.9 Calcification and ossification of muscle, unspecified (principal); R26.2 Difficulty in walking, not elsewhere classified; Z96.642 Presence of left artificial hip joint
CPT/HCPCS: 20611; 87070; 87075; 87102; 87205; 89050